=== PATIENT | female | born 1965 | race Caucasian/White ===

== ENCOUNTER → 2017-01-19 | Outpatient (CLI) | payer OTHER ==
--- NOTE | 2017-01-19 11:41 | MR ---
MR left hip HISTORY: Left hip pain Multiplanar multisequence imaging obtained through the pelvis with small lznra-by-qyna images through the left hip. There is reactive marrow change within the acetabula, proximal left femur, remodeling present in the left femoral head, there is marginal spurring and joint space loss, grade 3 to grade IV chondromalaci a. Subchondral geode formation is present in the acetabular roof and femoral head. Small left hip jason nt effusion is present. Minimal fluid signal present at the origins of the hamstring musculature. There is some fluid signal present along the right flank, subcutaneous tissues. Nabothian cysts are n oted within the cervix. IMPRESSION: Advanced osteoarthritis left hip
== END | disposition home or self-care (01) ==
LOC: RADMRIMAIN 09:09
PROVIDERS: ATTEND Family Medicine
DX: M16.12 Unilateral primary osteoarthritis, left hip (principal)

== ENCOUNTER → 2019-02-25 | Outpatient (CLI) | payer BC ==
--- NOTE | 2019-02-25 09:52 | XR ---
EXAMINATION TYPE: XR abdomen 2V DATE OF EXAM: 02/25/2019 CLINICAL DATA: 53 year-old female left lower quadrant pain, [facility] COMPARISON: None FINDINGS: Lung bases are clear. No evidence for free intraperitoneal air. Cholecystectomy clips. No dilated small bowel or air-fluid levels. Scattered air seen throughout the colon extending distall y into the rectum. Mild to moderate stool in the right side of the colon. Rounded calcification low in the left side of the pelvis suspected to represent a phlebolith. Mild dextroconvex curvature of the lumbar spine likely positional. Left hip total arthroplasty. IMPRESSION: 1. Rounded calcification low in the left side of the pelvis suspected to represent a phlebolith. 2.No evidence of bowel obstruction or free intraperitoneal air.
== END | disposition home or self-care (01) ==
LOC: RADXRYALE 09:04
PROVIDERS: ATTEND Physician Assistant Medical
DX: R10.32 Left lower quadrant pain (principal)
CPT/HCPCS: 74019

== ENCOUNTER → 2019-02-25 | Outpatient (CLI) | payer BC ==
--- NOTE | 2019-02-25 13:47 | CT ---
EXAMINATION TYPE: CT abdomen pelvis w con DATE OF EXAM: 02/25/2019 COMPARISON: None HISTORY: Left lower quadrant pain with nausea and vomiting. CT DLP: 1624 mGycm Automated exposure control for dose reduction was used. CONTRAST: CT scan of the abdomen pelvis is performed with IV Contrast, patient injected with 100 mL of Isovue M 300. FINDINGS- LUNG BASES- No significant abnormality is appreciated. LIVER/GB- No gross abnormality is appreciated. Postcholecystectomy changes noted. PANCREAS-there is fatty replacement and atrophy of portions of the pancreas SPLEEN- No gross abnormality is seen. ADRENALS- No gross abnormality is seen. KIDNEYS/BLADDER- no hydronephrosis nephrolithiasis or renal mass. BOWEL-bowel gas pattern is not adequately small bowel loops prominent in the lower abdomen upper pelv is.. There is thickening of the wall the right colon. LYMPH NODES- No greater than 1cm abdominal or pelvic lymph nodes areappreciated. OSSEOUS STRUCTURES-artifact from a left hip prostheses incidentally noted. Multilevel degenerative di sc disease. Arthropathy of the right hip. Artifact from the left hip prostheses limits portions of th e evaluation of the left pelvis. Bladder is therefore not well seen. OTHER- There is lobulation of the uterus which may represent a uterine fibroid or be related to a r ight ovarian adnexal lesion which could be correlated with ultrasound. Incidental note made of a retr oaortic left renal vein.. IMPRESSION- 1. There are few prominent small bowel loops are seen in the upper pelvis and lower abdomen which cou ld been the basis of an ileus. Enteritis not excluded. 2. There is thickening the wall the right colon. Underlying mucosal lesion is not excluded although t he finding could be related to incomplete distention. Correlate clinically and if warranted with dedi cated direct visualization. 3. Lobulated uterus. May been the basis of a fibroid or possibly ovarian lesion. Recommend follow-up pelvic ultrasound.
== END | disposition home or self-care (01) ==
LOC: RADCTMAIN 11:20
PROVIDERS: ATTEND Physician Assistant Medical
DX: K63.89 Other specified diseases of intestine (principal); N85.8 Other specified noninflammatory disorders of uterus
CPT/HCPCS: 74177; Q9967

== ENCOUNTER 2019-02-27 16:00 | Emergency (ER) | payer BC ==
[2019-02-27 17:07] LABS: Appearance,Urine Clear (Clear); Basophils # (A) 0.1 k/uL (0-0.2); Basophils % (A) 1 %; Bilirubin,Urine Negative (Negative); Blood,Urine Negative (Negative); Color,Urine Light Yellow; Eosinophils # (A) 0.3 k/uL (0-0.7); Eosinophils % (A) 3 %; Glucose,Urine (UA) Negative (Negative); HCT 43.6 % (34.0-46.0); HGB 14.4 gm/dL (11.4-16.0); Ketones,Urine Negative (Negative); Leukocyte Esterase,Urine Negative (Negative); Lymphocytes # (A) 2.5 k/uL (1.0-4.8); Lymphocytes % (A) 20 %; MCH 30.8 pg (25.0-35.0); MCV 93.2 fL (80.0-100.0); Monocytes # (A) 0.6 k/uL (0-1.0); Monocytes % (A) 5 %; Neutrophils # (A) 8.9 k/uL (1.3-7.7); Neutrophils % (A) 71 %; Nitrite,Urine Negative (Negative); Platelet Count 315 k/uL (150-450); Protein,Urine Negative (Negative); RBC 4.67 m/uL (3.80-5.40); RDW 13.6 % (11.5-15.5); Specific Gravity,Urine 1.004 (1.001-1.035); Urobilinogen,Urine <2.0 mg/dL (<2.0); WBC 12.5 k/uL (3.8-10.6)
[2019-02-27 17:19] LABS: Albumin 4.8 g/dL (3.5-5.0); Calcium 10.8 mg/dL (8.4-10.2); Potassium 3.5 mmol/L (3.5-5.1); Total Bilirubin 0.8 mg/dL (0.2-1.3)
[2019-02-27] MEDS ORDERED: KETOROLAC 30 MG/ML 1 ML VIAL IVP STA (17:21)
--- NOTE | 2019-02-27 17:51 | CT ---
EXAMINATION TYPE: CT abdomen pelvis wo con DATE OF EXAM: 02/27/2019 COMPARISON: 02/25/2019 HISTORY: Worsening LLQ pain CT DLP: 845.9 mGycm Automated exposure control for dose reduction was used. TECHNIQUE: Helical acquisition of images was performed from the lung bases through the pelvis. FINDINGS: Lung bases are clear. There is no pleural effusion. Heart is enlarged. Liver spleen appear normal. Th ere are clips from cholecystectomy. Bile ducts are not dilated. There is no evidence of pancreatic ma ss. There is no adrenal mass. Kidneys have normal size and contour. There is no hydronephrosis. Bladder d istends smoothly. There is oral contrast and a large bowel. There is no sign of a bowel obstruction. Uterus is anteverted. There is no inguinal hernia. There is no free fluid in the pelvis. There is deg enerative disc space narrowing at L2-3 with spur formation. There is no compression fracture. There i s mild atherosclerotic vascular calcification. There is no ascites. There is no sign of free air. There is no mesenteric edema. There is some fatty infiltration of the pancreas. There is left hip prosthesis with some mild metal artifact. There is no evidence of a pelvic mass. Appendix appears normal. I see no intestinal wall thickening. There are n o dilated loops. There is no evidence of a bowel obstruction. IMPRESSION: NEGATIVE CT SCAN ABDOMEN AND PELVIS. I DO NOT SEE A CAUSE FOR ABDOMINAL PAIN. NO ADVERSE CHANGE ARLEN RED TO OLD EXAM.
[2019-02-27] MEDS ORDERED: MORPHINE SULFATE 4 MG/ML SYRINGE IVP STA (19:03)
--- NOTE | 2019-02-27 19:19 | US ---
EXAMINATION TYPE: US transvaginal DATE OF EXAM: 02/27/2019 COMPARISON: CT CLINICAL HISTORY: Pain. Pelvic pain x 5 days Pt unsure of LMP. D and C. . TECHNIQUE: Transvaginal (TV). Date of LMP: Unknown. EXAM MEASUREMENTS: Uterus: 5.7 x 4.2 x 2.7 cm Endometrial Stripe: 0.29 cm Right Ovary: 3.0 x 2.3 x 2.1 cm Left Ovary: 1.9 x 1.5 x 1.3 cm 1. Uterus: Anteverted Hypoechoic areas seen in cervix suggestive of nabothian cysts. Area measured : 0.7 x 0.5 x 0.6 cm. 2. Endometrium: Not clearly seen. Approximate measurement. 3. Right Ovary: Appears heterogeneous. 4. Left Ovary: Slightly limited. Appears wnl. Spectral, color and waveform doppler imaging shows good arterial and venous flow within the ovaries ; there is no evidence for ovarian torsion. 5. Bilateral Adnexa: appears wnl 6. Posterior cul-de-sac: appears wnl IMPRESSION: Uterus and endometrium appear normal for age. No adnexal mass or free fluid. No evidence of ovarian torsion.
[2019-02-27 19:39] VITALS: RESP 18
[2019-02-27] MEDS ORDERED: ACET/COD 300 MG/30 MG STARTER PACK 6 TAB BTL PO STA (19:49)
--- NOTE | 2019-02-27 19:50 | ED ---
Abdominal Pain HPI - General Chief Complaint: Abdominal Pain Stated Complaint: left side back pain Time Seen by Provider: 02/27/19 16:23 Source: patient Mode of arrival: ambulatory Limitations: no limitations - History of Present Illness Initial Comments: 53-year-old female presenting today for chief complaint of left lower abdominal pain. Patient states she has had left lower abdominal pain for the past 4 days. She states it began after vomiting on Sunday and Sunday. She states the pain is intermittent and comes and goes. She states she has been evaluated by primary care provider were CT with contrast was obtained on 02/25/2019. It showed evidence suggestive enteritis as well as a lobulated uterus. Possible ovarian abnormality. Patient was instructed to come to the emergency department if symptoms worsen. Patient was placed on Flagyl and metronidazole at that time. Patient denies any melena hematochezia. She has a fever chills night sweats. Patient denies any dysuria urgency frequency hematuria, patient denies any tearing pain or pulsatile abdominal masses. Patient denies any current nausea or vomiting. Patient denies diarrhea. Patient denies history of diverticulitis. Patient denies history of kidney stones. Patient states the left lower abdominal pain does radiate at times to the back. She does not states the pain is constant she denies any alleviating or aggravating factors. Patient denies any injury or trauma to the abdomen or back. Remaining review of systems negative, patient denies any recent shortness of breath, chest pain, back pain, leg pain, numbness or tingling, dysuria or hematuria, constipation or diarrhea, headaches or visual changes, or any other complaints. - Related Data Home Medications Medication Instructions Recorded Confirmed Naproxen [Naprosyn] 500 mg PO BID PRN 01/16/15 02/27/19 QUEtiapine [SEROquel] 200 mg PO HS 01/16/15 02/27/19 ALPRAZolam [Xanax] 0.5 mg PO DAILY PRN 02/27/19 02/27/19 Ciprofloxacin HCl [Cipro] 500 mg PO BID 02/27/19 02/27/19 Levothyroxine Sodium [Synthroid] 50 mcg PO DAILY 02/27/19 02/27/19 Lisinopril-Hctz 20-25 mg 1 tab PO DAILY 02/27/19 02/27/19 [Zestoretic 20-25] metroNIDAZOLE [Flagyl] 500 mg PO TID 02/27/19 02/27/19 tiZANidine [Zanaflex] 4 mg PO TID 02/27/19 02/27/19 traMADol HCL [Ultram] 50 mg PO TID PRN 02/27/19 02/27/19 Allergies Allergy/AdvReac Type Severity Reaction Status Date / Time loratadine [From Claritin-D] AdvReac Rash/Hives Verified 02/27/19 16:59 pseudoephedrine sulfate AdvReac Rash/Hives Verified 02/27/19 16:59 [From Claritin-D] Review of Systems ROS Statement: Those systems with pertinent positive or pertinent negative responses have been documented in the HPI. ROS Other: All systems not noted in ROS Statement are negative. Past Medical History Additional Past Medical History / Comment(s): back pain History of Any Multi-Drug Resistant Organisms: None Reported Past Surgical History: Cholecystectomy, Joint Replacement, Tonsillectomy Additional Past Surgical History / Comment(s): lt hip Past Psychological History: No Psychological Hx Reported Smoking Status: Current every day smoker Past Alcohol Use History: None Reported Past Drug Use History: None Reported General Exam - General Exam Comments Initial Comments: General: The patient is awake and alert, in no distress, and does not appear acutely ill. Eye: Pupils are equal, round and reactive to light, extra-ocular movements are intact. No nystagmus. There is normal conjunctiva bilaterally. No signs of icterus. Ears, nose, mouth and throat: There are moist mucous membranes and no oral lesions. Neck: The neck is supple, there is no tenderness or JVD. Cardiovascular: There is a regular rate and rhythm. No murmur, rub or gallop is appreciated. Respiratory: Lungs are clear to auscultation, respirations are non-labored, breath sounds are equal. No wheezes, stridor, rales, or rhonchi. Gastrointestinal: Soft, non-distended, with mild tenderness to palpation of the left lower quadrant there is no rigidity the abdomen without pulsatile or firm masses or organomegaly noted. There is no rebound or guarding present. No CVA tenderness. Bowel sounds are unremarkable. Musculoskeletal: Normal ROM, no tenderness. Strength 5/5. Sensation intact. Radial pulses equal bilaterally 2+. Neurological: A&O x 3. CN II-XII intact, There are no obvious motor or sensory deficits. Coordination appears grossly intact. Speech is normal. Skin: Skin is warm and dry and no rashes or lesions are noted. Psychiatric: Cooperative, appropriate mood & affect, normal judgment. Limitations: no limitations Course Vital Signs 02/27/19 02/27/19 02/27/19 16:17 19:38 19:59 Temperature 98.1 F 98.4 F Pulse Rate 93 90 96 Respiratory 20 18 18 Rate Blood Pressure 154/84 156/66 148/67 O2 Sat by Pulse 99 99 95 Oximetry Medical Decision Making - Medical Decision Making While appearing 53-year-old female presented for left lower abdominal pain. Patient states at times it radiates towards the back. CT outpatient was obtained revealing lobulated uterus as well as findings consistent with colitis or enteritis. Patient did have history of vomiting. Patient states pain has persisted. CT was repeated given patient states there was increase in intensity of pain today. No acute findings no change from previous CT. Patient's been taking antibiotics. She does not appear in acute distress is no signs of acute abdomen. No rigidity no guarding or signs of peritoneal irritation signed. There is no hematuria or signs of kidney stone however there was a consultation note in the left lower aspect of abdomen from [facility] obtained 02/25/2019 outpatient. Laboratory studies revealed mild leukocytosis remaining u nremarkable. Patient appears well no signs of acute distress. Patient given start pack for Tylenol #3 for pain per request. Patient has a outpatient follow-up with gastroenterology for uppper and lower endoscopy. Pt states she is comfortable with discharge. Return parameters were discussed at length the patient. I discussed the case in detail type provider Dr. Dobson who was agreeable patient care plan after reviewing imaging and laboratory studies. - Lab Data Result diagrams: 02/27/19 16:55 02/27/19 16:55 Lab Results 02/27/19 02/27/19 02/27/19 Range/Units 16:55 16:55 16:55 WBC 12.5 H (3.8-10.6) k/uL RBC 4.67 (3.80-5.40) m/uL Hgb 14.4 (11.4-16.0) gm/dL Hct 43.6 (34.0-46.0) % MCV 93.2 (80.0-100.0) fL MCH 30.8 (25.0-35.0) pg MCHC 33.0 (31.0-37.0) g/dL RDW 13.6 (11.5-15.5) % Plt Count 315 (150-450) k/uL Neutrophils % 71 % Lymphocytes % 20 % Monocytes % 5 % Eosinophils % 3 % Basophils % 1 % Neutrophils # 8.9 H (1.3-7.7) k/uL Lymphocytes # 2.5 (1.0-4.8) k/uL Monocytes # 0.6 (0-1.0) k/uL Eosinophils # 0.3 (0-0.7) k/uL Basophils # 0.1 (0-0.2) k/uL Sodium 142 (137-145) mmol/L Potassium 3.5 (3.5-5.1) mmol/L Chloride 102 (98-107) mmol/L Carbon Dioxide 30 (22-30) mmol/L Anion Gap 10 mmol/L BUN 19 H (7-17) mg/dL Creatinine 0.89 (0.52-1.04) mg/dL Est GFR (CKD-EPI)AfAm 86 (>60 ml/min/1.73 sqM) Est GFR (CKD-EPI)NonAf 74 (>60 ml/min/1.73 sqM) Glucose 70 L (74-99) mg/dL Calcium 10.8 H (8.4-10.2) mg/dL Total Bilirubin 0.8 (0.2-1.3) mg/dL AST 23 (14-36) U/L ALT 24 (9-52) U/L Alkaline Phosphatase 68 (38-126) U/L Total Protein 8.0 (6.3-8.2) g/dL Albumin 4.8 (3.5-5.0) g/dL Amylase 38 (30-110) U/L Lipase 28 (23-300) U/L Urine Color Light Yellow Urine Appearance Clear (Clear) Urine pH 6.0 (5.0-8.0) Ur Specific [place] 1.004 (1.001-1.035) Urine Protein Negative (Negative) Urine Glucose (UA) Negative (Negative) Urine Ketones Negative (Negative) Urine Blood Negative (Negative) Urine Nitrite Negative (Negative) Urine Bilirubin Negative (Negative) Urine Urobilinogen <2.0 (<2.0) mg/dL Ur Leukocyte Esterase Negative (Negative) Disposition Clinical Impression: Abdominal pain Disposition: HOME SELF-CARE Condition: Good Instructions (If sedation given, give patient instructions): Abdominal Pain (ED) Additional Instructions: Please use medication as discussed. Please follow-up with family doctor in the next 2 days, and GI as discussed. Please return to emergency room if the symptoms increase or worsen or for any other concerns. Is patient prescribed a controlled substance at d/c from ED?: No Referrals: Wyatt Gray DO [Primary Care Provider] - 1-2 days Jarvis Hanson MD [STAFF PHYSICIAN] - 1-2 days Time of Disposition: 19:50
[2019-02-27 20:03] VITALS: BP 148/67; PULSE 96; TEMP 98.4
== END 2019-02-27 19:59 | disposition home or self-care (01) ==
LOC: EC 16:00
DX: R10.32 Left lower quadrant pain (principal); D72.829 Elevated white blood cell count, unspecified; M54.9 Dorsalgia, unspecified; F17.200 Nicotine dependence, unspecified, uncomplicated; Z88.8 Allergy status to other drugs, medicaments and biological substances; Z79.899 Other long term (current) drug therapy; Z79.890 Hormone replacement therapy; Z90.49 Acquired absence of other specified parts of digestive tract
CPT/HCPCS: 36415; 80053; 82150; 83690; 85025; 81003; 93975; 76830; 74176; 99284; 96374; 96375; J2270; J1885

== ENCOUNTER → 2019-06-12 | Outpatient (CLI) | payer BC ==
--- NOTE | 2019-06-12 15:49 | XR ---
EXAMINATION TYPE: XR lumbosacral spine min 4V DATE OF EXAM: 06/12/2019 CLINICAL HISTORY: Chronic left lower back pain. TECHNIQUE: Frontal, lateral, and oblique images of the lumbar spine are obtained. COMPARISON: 01/20/2015 FINDINGS: There are 5 lumbar type vertebral bodies identified. No acute fracture or subluxation. Red emonstration of disc space narrowing in the lower thoracic spine and upper lumbar spine most severe a t L2-3. Anterior marginal osteophytes throughout the visualized spine. Multilevel facet arthropathy. No spondylolysis or spondylolisthesis. Pedicles and sacroiliac joints are intact. Partially visualize d left hip arthroplasty. IMPRESSION: No acute fracture or dislocation is seen in the lumbar spine.
== END | disposition home or self-care (01) ==
LOC: RADXRYALE 15:14
PROVIDERS: ATTEND Physician Assistant Medical
DX: M54.5 Low back pain (principal); R22.42 Localized swelling, mass and lump, left lower limb
CPT/HCPCS: 72110

== ENCOUNTER → 2020-12-17 | Outpatient (CLI) | payer BC ==
--- NOTE | 2020-12-17 13:16 | US ---
EXAMINATION TYPE: US pelvis complete transvag DATE OF EXAM: 12/17/2020 COMPARISON: CLINICAL HISTORY: N83.201 Unspecified ovarian cyst, right side. Patient states having an MRI at [facility] that showed 14 mm cyst TECHNIQUE: Transvaginal (TV) and Transabdominal (TA) . Transabdominal sonographic images of the pel vis were acquired. Transvaginal sonographic images were medically necessary to better assess the fol lowing anatomy: Endometrium, ovary Date of LMP: Postmenopausal, G0 EXAM MEASUREMENTS: Uterus: 4.6 x 3.0 x 2.3 cm Endometrial Stripe: 0.3 cm Right Ovary: 2.0 x 1.2 x 1.1 cm Left Ovary: 1.8 x 0.9 x 1.4 cm 1. Uterus: Anteverted Heterogenous. Atrophic. 2. Endometrium: Limited visualization, within normal limits 3. Right Ovary: wnl 4. Left Ovary: wnl 5. Bilateral Adnexa: wnl 6. Posterior cul-de-sac: no free fluid Cervix- Nabothian cysts. Possible mass visualized = 2.5 x 2.4 x 2.2 cm IMPRESSION: 1. Heterogenous appearance of the cervix. Solid lesion may be present. Additional workup with MRI is recommended.
== END | disposition home or self-care (01) ==
LOC: RADUSWWP 11:52
PROVIDERS: ATTEND Family Medicine
DX: N83.201 Unspecified ovarian cyst, right side (principal)
CPT/HCPCS: 76830; 76856

== ENCOUNTER → 2021-02-11 | Outpatient (CLI) | payer BC ==
--- NOTE | 2021-02-14 14:32 | MM ---
Reason for exam: screening (asymptomatic). Last mammogram was performed 8 years ago. History: Patient is nulliparous. Family history of breast cancer in cousin at age 50 and breast cancer in aunt. Physical Findings: A clinical breast exam by your physician is recommended on an annual basis and results should be correlated with mammographic findings. MG Screening Mammo w CAD Bilateral CC and MLO view(s) were taken. Prior study comparison: February 21, 2013, bilateral digital screening mammo w/CAD. November 03, 2008, left breast digital mammogram. There are scattered fibroglandular densities. Finding: There are typically benign round, regional calcifications in the lower inner quadrant, posterior position of both breasts. There is a chronic nodularity in the right breast. There is no discrete abnormality. No change since 2007. ASSESSMENT: Benign, BI-RAD 2 RECOMMENDATION: Routine screening mammogram of both breasts in 1 year.
== END | disposition home or self-care (01) ==
LOC: RADMAMWWP 09:53
PROVIDERS: ATTEND Family Medicine
DX: Z12.31 Encounter for screening mammogram for malignant neoplasm of breast (principal)
CPT/HCPCS: 77067

== ENCOUNTER → 2021-04-20 | Outpatient (CLI) | payer BC, OTHER ==
[2021-04-20 14:18] VITALS: BP 145/81; PULSE 83; RESP 18; TEMP 98
--- NOTE | 2021-04-20 14:36 | P.PAINCN ---
History of Present Illness - Reason for Consult Consult date: 04/20/21 - History of Present Illness This is a 55-year-old patient referred by her PCP with a chief complaint of chronic pain in low back pain with radiation into the lower extremities. Patient has a of low back pain since 2014. She says the pain started after she had her left hip replaced. Pain is located in the low back with some radiation down the right lower extremity. Occasionally will radiate into the foot, however this is uncommon. The majority of her pain is in her low back. Pain is made worse with walking and sometimes sitting, alleviated with leg elevation. Currently an 8 out of 10, at its worst a 10 out of 10, at best a 2 out of 10. In terms of management she has seen a chiropractor, gets massages, has done physical therapy. Currently takes Celebrex tramadol and Robaxin from her primary care pr jaleel. 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 In regards to injections, we have a noted left SI joint injection in 2016 but she does not remember this. . Patient also denies new-onset weakness, bowel/bladder incontinence, or any other signs or symptoms of cauda equina syndrome. There are no signs of acute intoxication, and no indications of medication diversion or overuse. In addition to above, 13-point review of systems is also negative for chest pain, shortness of breath, changes in vision, changes in hearing, new onset weakness, abdominal pain, diarrhea, extreme fatigue, malaise, fever, skin changes, homicidal or suicidal ideation, or bowel or bladder incontinence. Physical exam: Vital Signs: Reviewed in EMR GENERAL: obese, in no acute distress PSYCH: Mood and affect is appropriate. Awake, alert, and oriented SKIN: Skin color, texture, turgor normal, no rashes or lesions HEENT: Normocephalic, atraumatic. EOM intact CV: No pedal edema RESP: Respirations are unlabored, no audible wheezing GI: Abdomen non-distended MUSCULOSKELETAL: Bilateral upper and lower extremity strength is normal and symmetric. Significant muscle atrophy of the lumbar spine with lordosis noted. Lumbar spine: Straight leg raising in the sitting position is negative for radicular pain. No pain to palpation over the lumbar spine and paraspinous m uscles. positive for pain with facet loading Limited flexion and extension due to pain/body habitus Buttocks: No pain to palpation over the PSIS, Glendy test is negative Extremities: Peripheral joint ROM is full and pain free without obvious instability or laxity in all four extremities. No edema or skin discolorations noted. Gait: Gait is normal but slow NEUR: Bilateral upper and lower extremity coordination and muscle stretch reflexes are physiologic and symmetric. Negative clonus. No loss of sensation is noted. Cranial nerves are grossly intact. Imaging: Lumbar MRI At L2-L3 there is disc bulge and facet degeneration with mild central canal stenosis and moderate left and mild right foraminal stenosis L3-L4 there is minimal disc bulge and facet degenerationsignificant stenosis. L4-L5 mild to moderate right and mild left foraminal stenosis with central canal is painted excellent L5-S1 there is a disc bulge with right foraminal and far lateral component facet degeneration there is moderate right and left foraminal stenosis with contact of the right L5 nerve root. Assessment: 1. Lumbar facet arthropathy 2. Lumbar disc degeneration Plan: 1. Explanation: Diagnoses, prognoses, and multiple treatment options including but not limited to physical therapy, interventional therapies, medication management and surgery were discussed with the patient and all questions were answered to the patient's satisfaction. 2. Investigations: none 3. Counseling: The patient was counseled for 3 minutes on BODY MASS INDEX, EXERCISE. Specifically, the patient was instructed regarding the importance of smoking cessation, weight control, and exercise in the context of both chronic pain and overall health. 4. Procedures: bilateral L4-5 and L5-s1 MBB 5. Consultations: None 6. Medications: None 7. Disposition: for above procedure I spent 50 minutes on patient care today. The time was used to review medical records including relevant urine studies and prescription history (MAPs), review of the available imaging, evaluation and examination the patient, coordination of care at the medical staff and if applicable referring physicians, as well as creation of the medical record. Past Medical History Past Medical History: GERD/Reflux, Thyroid Disorder Additional Past Medical History / Comment(s): LOWER BACK PAIN, SEES CHIROPRACTOR History of Any Multi-Drug Resistant Organisms: None Reported Past Surgical History: Cholecystectomy, Joint Replacement, Tonsillectomy Additional Past Surgical History / Comment(s): TOTAL LEFT HIP Past Anesthesia/Blood Transfusion Reactions: No Reported Reaction Past Psychological History: No Psychological Hx Reported Smoking Status: Former smoker Past Alcohol Use History: Occasional Additional Past Alcohol Use History / Comment(s): SMOKES 4-5 CIGARETTES/DAY, STARTED AGE 22, QUIT OFF AND ON. Past Drug Use History: None Reported - Past Family History Sister(s) Family Medical History: Cancer Medications and Allergies Home Medications Medication Instructions Recorded Confirmed Type Naproxen [Naprosyn] 500 mg PO BID PRN 01/16/15 02/27/19 History QUEtiapine [SEROquel] 200 mg PO HS 01/16/15 02/27/19 History ALPRAZolam [Xanax] 0.5 mg PO DAILY PRN 02/27/19 02/27/19 History Ciprofloxacin HCl [Cipro] 500 mg PO BID 02/27/19 02/27/19 History Levothyroxine Sodium [Synthroid] 50 mcg PO DAILY 02/27/19 02/27/19 History Lisinopril-Hctz 20-25 mg 1 tab PO DAILY 02/27/19 02/27/19 History [Zestoretic 20-25] metroNIDAZOLE [Flagyl] 500 mg PO TID 02/27/19 02/27/19 History tiZANidine [Zanaflex] 4 mg PO TID 02/27/19 02/27/19 History traMADol HCL [Ultram] 50 mg PO TID PRN 02/27/19 02/27/19 History Allergies Allergy/AdvReac Type Severity Reaction Status Date / Time loratadine [From Claritin-D] AdvReac Rash/Hives Verified 04/14/21 15:17 pseudoephedrine sulfate AdvReac Rash/Hives Verified 04/14/21 15:17 [From Claritin-D] PQRS Measure Charge Sheet PQRS Narrative: Smoking Status Current every day smoker Pain Intensity [Lower Back] 8 Scale Used Numeric (1 - 10) Home Medications: Ambulatory Orders Naproxen [Naprosyn] 500 mg PO BID PRN 01/16/15 QUEtiapine [SEROquel] 200 mg PO HS 01/16/15 ALPRAZolam [Xanax] 0.5 mg PO DAILY PRN 02/27/19 Ciprofloxacin HCl [Cipro] 500 mg PO BID 02/27/19 Levothyroxine Sodium [Synthroid] 50 mcg PO DAILY 02/27/19 Lisinopril-Hctz 20-25 mg [Zestoretic 20-25] 1 tab PO DAILY 02/27/19 metroNIDAZOLE [Flagyl] 500 mg PO TID 02/27/19 tiZANidine [Zanaflex] 4 mg PO TID 02/27/19 traMADol HCL [Ultram] 50 mg PO TID PRN 02/27/19
== END ==
LOC: PNWHC3 13:54
PROVIDERS: ATTEND Anesthesiology
DX: M47.816 Spondylosis without myelopathy or radiculopathy, lumbar region (principal); M51.36 Other intervertebral disc degeneration, lumbar region; F17.210 Nicotine dependence, cigarettes, uncomplicated; Z88.8 Allergy status to other drugs, medicaments and biological substances
CPT/HCPCS: 99211

== ENCOUNTER 2021-05-06 10:42 | Day surgery (SDC) | payer BC ==
[2021-05-05 14:35] VITALS: BMI 42.3
[2021-05-06 11:00] VITALS: TEMP 97.8
[2021-05-06] MEDS ORDERED: LACTATED RINGERS 1,000 ML IV ONE (11:00)
[2021-05-06] MEDS ORDERED: TRIAMCINOLONE ACETONIDE 40 MG/ML 1 ML VIAL ONE (11:29)
[2021-05-06] MEDS ORDERED: ROPIVACAINE 5MG/ML 20ML VIAL ONE (11:29)
[2021-05-06] MEDS ORDERED: IOPAMIDOL M200 10 ML VIAL ONE (11:29)
[2021-05-06] MEDS ORDERED: MIDAZOLAM 2 MG/2 ML VIAL ONE (11:29)
[2021-05-06] MEDS ORDERED: fentaNYL (PF) 50 MCG/ML 2 ML AMP ONE (11:29)
--- NOTE | 2021-05-06 11:44 | P.PCN ---
Date of Procedure: 05/06/21 Description of Procedure: PREOPERATIVE DIAGNOSIS : Lumbar spondylosis with Facet Arthropathy without myelopathy POSTOPERATIVE DIAGNOSIS: same PROCEDURE: first Diagnostic lumbar medial branch block with fluoroscopy at L3, L4, L5 [bilateral] which covers facets L4-5 and L5-S1 ANESTHESIA: Local anesthetic; moderate IV sedation with anesthesia team Fluoroscopy was used for the procedure and images were saved in the radiology portion of the chart. Surgeon: Robin Rico MD PROCEDURE INDICATION: Lumbar back pain without radiculopathy, not responsive to conservative management. PROCEDURE DESCRIPTION: the patient was seen and identified in the preop holding area , risks and benefits and possible complications of the procedure and alternatives were discussed with the patient, and the patient agreed to proceed with the procedure and signed the consent . IV was started , vital signs were monitored during the procedure and fluoroscopy was used to maximize the benefit and accuracy of the needle placement, and sedation was given to decrease patient anxiety. Patient was taken to the procedure room and placed in prone position. The lumbar region was prepped using chlorhexidineX-2. Under strict sterile technique using AP fluoroscopy the bilateral sacral ala were identified and using ipsilateral oblique fluoroscopy ,the junction of the transverse process and the superior articulating process of the L4, L5 vertebra which corresponds to the fluoroscopy image of the eye of the Wing dog for the medial branches were identified. Subsequently, after local infiltration of skin with lidocaine 1% 0.2 mL at each level , a 25-gauge 3.5" Quincke-type needle was placed at the junction of the base of the transverse process and the superior articular process at the appropriate level as well as the sacral ala, and the needle was advanced until the periosteum contacted, needle placement confirmed with AP and oblique fluoroscopy, 0.2 mL of Isovue 200 per level was injected which revealed no vascular uptake and after negative aspiration. I mona up 5 mL of 0.5% ropivacaine and 1 mL of 40 mg/mL kenalog and injected 1 mL of this injectate at each level and the needle subsequently removed . A total of [2 levels injected bilaterally] At the end of the procedure and the needles were removed and a bandage applied after the skin was cleaned. The patient was taken to recovery room in stable condition and monitors in the recovery room for 20-30 minutes and discharged home in stable condition after discharge criteria met and patient will follow up in clinic in 2 weeks EBL: Minimal COMPLICATION: None.
[2021-05-06] MEDS ORDERED: IV FLUID CONTINUATION 1,000 ML IV ONE (11:51)
[2021-05-06 11:53] VITALS: PULSE 60
--- NOTE | 2021-05-06 12:06 | FL ---
Fluoroscopy HISTORY: Pain 8 seconds fluoroscopy time supplied to the referring clinician. 3 intraoperative C-arm images docume nt the procedure. See dictated report from anesthesia.
[2021-05-06 12:07] VITALS: BP 111/66; RESP 16
== END 2021-05-06 12:20 | disposition home or self-care (01) ==
LOC: ORPAIN 10:42
PROVIDERS: ATTEND Anesthesiology
DX: M47.816 Spondylosis without myelopathy or radiculopathy, lumbar region (principal); Z88.8 Allergy status to other drugs, medicaments and biological substances; F17.200 Nicotine dependence, unspecified, uncomplicated; E07.9 Disorder of thyroid, unspecified; G89.29 Other chronic pain; K21.9 Gastro-esophageal reflux disease without esophagitis; Z79.82 Long term (current) use of aspirin; Z79.890 Hormone replacement therapy; Z79.891 Long term (current) use of opiate analgesic; Z79.899 Other long term (current) drug therapy
CPT/HCPCS: 64493; 64494; J2250; J3301; J3010; Q9966; J2795

== ENCOUNTER → 2021-06-24 | Day surgery (SDC) | payer BC ==
[2021-06-21 12:47] VITALS: BMI 41.2
[~2021-06-24] MED LIST: IV FLUID CONTINUATION 500 ML IV ONE; LACTATED RINGERS 1,000 ML IV SCH; LIDOCAINE 1% (10MG/ML) FOR IV START INTRADERMA PRN; MIDAZOLAM 2 MG/2 ML VIAL ONE; ROPIVACAINE 5MG/ML 20ML VIAL ONE; fentaNYL (PF) 50 MCG/ML 2 ML AMP ONE; methylPREDNISolone ACETATE 40 MG/ML 1 ML VIAL ONE
[2021-06-24 10:25] VITALS: TEMP 97.8
--- NOTE | 2021-06-24 11:22 | P.PCN ---
Date of Procedure: 06/24/21 Procedure(s) Performed: PREOPERATIVE DIAGNOSIS : 1- Lumbar spondylosis with Facet Arthropathy without myelopathy . POSTOPERATIVE DIAGNOSIS: 1- Lumbar spondylosis with Facet Arthropathy without myelopathy . PROCEDURE: Diagnostic bilateral L3 , L4 , and L5 medial branch block under fluoroscopy guidance(fluoroscopy images available in the radiology Department ) ( To target the facet joint between Bilateral L4-5 , and L5-S1 ) #2nd ANESTHESIA: Monitored anesthesia care as per anesthesia department. EBL: Minimal COMPLICATION: None PROCEDURE INDICATION: Chronic low back pain secondary to Facet arthropathy unresponsive to conservative treatment. PROCEDURE DESCRIPTION: the patient was seen and identified in the preop holding area , risks and benefits and possible complications of the procedure and alternative were discussed with the patient, and the patient agreed to proceed with the procedure and signed the consent and vital signs monitored during the procedure and fluoroscopy was used to maximize the benefit and accuracy of the needle placement, and sedation was given to decrease patient anxiety, patient was taken to the procedure room and placed in prone position vital signs monitored in the back prepped with chlorhexidine X3 then under strict sterile technique using a right oblique fluoroscopy ,the junction of the transverse process and the superior articulating process of the right L3 , L4 , and L5 vertebra which corresponding to the fluoroscopy image of the eye of the Wing dog on the block side for the medial branches and subsequently , after local infiltration of skin and subcu tissuies with Ropivacaine 0.5 % , one mL at each level ,then 22-gauge 5 inches long Quincke-type needles , 3 needle was used , each one of them placed at the junction of the base of the transverse process and the superior articular process at the appropriate level, and the needle was advanced until the periosteum contacted, needle placement confirmed with AP oblique and lateral view and after appropriate needle placement confirmed, and after negative aspiration for heme and CSF and there was no paresthesia 1-1/2 mL of Ropivacaine 0.5% mixed with 20 mg Depo-Medrol , then half mL injected at each level after negative aspiration the needle subsequently removed and the same procedure repeated for the left side at left side at L3 , L4 and L5 levels. At the end of the procedure and the needles removed and a bandage applied after the skin was cleaned the cleaning solution patient taken to recovery room in stable condition and monitors in the recovery room for 20-30 minutes and discharged home in stable condition after discharge criteria met and patient will follow up with the pain clinic in 2-4 weeks
[2021-06-24 11:40] VITALS: BP 120/66; PULSE 62; RESP 16
--- NOTE | 2021-06-24 13:13 | FL ---
EXAMINATION TYPE: FL guided pain mgmt statistic DATE OF EXAM: 06/24/2021 FLUOROSCOPY Fluoroscopy time of 16 seconds was used during lumbar needle placement pain management procedure. 4 image/s document/s the procedure.
== END ==
LOC: ORPAIN 09:39
PROVIDERS: ATTEND Specialist
DX: M47.816 Spondylosis without myelopathy or radiculopathy, lumbar region (principal); G89.29 Other chronic pain; E03.9 Hypothyroidism, unspecified; K21.9 Gastro-esophageal reflux disease without esophagitis; Z87.891 Personal history of nicotine dependence
CPT/HCPCS: 64493; 64494; J2250; J1030; J3010; J2795

== ENCOUNTER → 2021-08-29 | Outpatient (CLI) | payer BC ==
--- NOTE | 2021-08-29 15:09 | P.PN ---
Subjective Progress Note Date: 08/29/21 Earnestine is a 56-year-old female presenting to clinic today for follow-up evaluation after second lumbar medial branch block 06/24/2021. After her first bilateral lumbar medial branch block at L4 5 and L5-S1 she has significant relief. She reported greater than 80% relief of her pain at that time. After the second injection she reported no relief in pain. She felt that her pain increased that day. She reported that she felt like she had a difficult procedure which caused her distress that day. Today she still reporting lower back pain greater on the right and left. She describes it as a sharp aching sensation and she rates it at worst is a 9 out of 10. At best is a 3 out of 10. Her pain is worse with sitting, bending and rising from a seated position. Pain is better with care support representative, Biofreeze, and massage therapy. She reports the pain in her lower back will sometimes radiate into her buttock and on the lateral portion of her right thigh. She denies any bowel or bladder dysfunction, saddle anesthesia, or any other red flag symptoms. Objective - Exam Physical Examinations : -Constitutiona : Cooperative , not in acute distress . -HEENT : nech : supple , no Lymphadenopathy , normal thyroid size . : eyes : no ptosis , no icterus, no photophobia . - neurologic : Cranial nerve II to XII intact , no focal neurological deffecit . -psychatric : alert , oriented X 3 , appropriate affect , intact judgment and insight . -Lymphatic : no Lymphadenopathy . - musculoskeltal : Lumber spine moter stegnth lower extremities ,thigh and legs 5/5 Right side , 5/5 Left side deep tendon reflexes : normal Knee Jerk , normal ankle Jerk lumber facet Loading Test =positive Right , positive Left Range of motion of the lumbar spine Flexion 30 degrees, extension 10 degrees strait leg raising test = positive at 45 degree Fabere test= unable to perform Sever tenderness over the Sacroiliac joint on the Right Gaenslen test= positive right ,and positive left . Seated flexion test= positive right . Distraction test= positive right Sacroiliac compression test= positive right Assessment and Plan Assessment: Assessment and plan Assessment: Lumbar spondylosis and facet arthropathy without myelopathy Right-sided sacroiliac joint dysfunction Plan: The patient can benefit from right sacroiliac joint injection up to 3 injections - PQRS measures = - Patient's medications are documented in the chart. -Tobacco use is positiveand counseling.refused -Patient's has not received pneumococcal vaccine. -Advanced care planning discussed, patient not eligible. -Opiate contract not signed. -Pain positive and follow-up visit/procedure is scheduled. -Patient's blood pressure measured [ 136/76 ] , and documented in the record ,and patient will follow up with the primary care. -Patient was not identified as an unhealthy alcohol user Time with Patient: Less than 30
[2021-08-29 16:19] VITALS: BP 136/76; PULSE 70; RESP 18
== END ==
LOC: PNWHC3 13:42
PROVIDERS: ATTEND Student in an Organized Health Care Education/Training Program
DX: M47.816 Spondylosis without myelopathy or radiculopathy, lumbar region (principal); M46.1 Sacroiliitis, not elsewhere classified; F17.200 Nicotine dependence, unspecified, uncomplicated; Z88.8 Allergy status to other drugs, medicaments and biological substances
CPT/HCPCS: 99211

== ENCOUNTER 2021-11-10 12:37 | Day surgery (SDC) | payer BC ==
[2021-11-08 09:52] VITALS: BMI 41.2
[2021-11-10] MEDS ORDERED: LACTATED RINGERS 1,000 ML IV SCH (13:10)
[2021-11-10 13:24] VITALS: RESP 16; TEMP 98.9
[2021-11-10] MEDS ORDERED: methylPREDNISolone ACETATE 40 MG/ML 1 ML VIAL ONE (13:49)
[2021-11-10] MEDS ORDERED: ROPIVACAINE 5MG/ML 20ML VIAL ONE (13:49)
[2021-11-10] MEDS ORDERED: MIDAZOLAM 2 MG/2 ML VIAL ONE (13:49)
[2021-11-10] MEDS ORDERED: fentaNYL (PF) 50 MCG/ML 2 ML AMP ONE (13:49)
--- NOTE | 2021-11-10 14:03 | P.PCN ---
Date of Procedure: 11/10/21 Procedure(s) Performed: Procedure= Right sacroiliac joints steroid injection under fluoroscopy guidance (fluoroscopy image stored on file in the radiology Department ) Preoperative diagnosis= 1-sacroiliitis 2-lumbar spondylosis with facet arthropathy Postoperative diagnosis=Same as preop Diagnosis . Complication = none Condition= stable Anesthesia= moderate sedation with intravenous Versed 2 mg , and fentanyl 100 micrograms . Indication for the procedure= patient complaining of low back pain , examination was positive for severe tenderness over the sacroiliac joints bilaterally and patient diagnosed with sacroiliitis, for this reason , she was good candidate for sacroiliac joint steroid injection. Description of the procedure= procedure risk and benefits discussed with the patient, including but not limited, risk of infection and bleeding, and ALLERGIC reaction to the medication and not complete pain relief and patient agreed with the preceding patient taken to the operating room, placed in prone position or standard monitors applied to the patient then after induction of anesthesia back prepped with chlorhexidine 3 times , Then under strict sterile technique, first I did the right sacroiliac joint the which was identified under fluoroscopy guidance been local infiltration of the skin and subcu interstitial with lidocaine 1% then 22-gauge Quincke Needle advanced slowly under fluoroscopy and placed in the right sacroiliac joint needle placement confirmed with AP and oblique and lateral view and after appropriate needle placement confirmed and after negative aspiration, or heme , then Ropivacaine 0.5% 4 mL, and 80 mg of Depo-Medrol mixed together and injected in the right sacroiliac joint after negative aspiration patient tolerated the procedure well without any complication.
--- NOTE | 2021-11-10 14:22 | FL ---
EXAMINATION TYPE: FL guided pain mgmt statistic DATE OF EXAM: 11/10/2021 CLINICAL HISTORY: Right sacroiliac joint pain. TECHNIQUE: Fluoroscopy. COMPARISON: None. FINDINGS: Fluoroscopic guidance was provided during pain relief procedure performed by Dr. Saurez . A total of 9 seconds of fluoroscopic time was utilized during the procedure and 1 spot images are acquired. Single limits acquired shows needle localization at the inferior sacroiliac joint level. IMPRESSION: As Above.
[2021-11-10 14:23] VITALS: BP 135/74; PULSE 71
[2021-11-10] MEDS ORDERED: IV FLUID CONTINUATION 1,000 ML IV ONE (14:25)
== END 2021-11-10 14:54 | disposition home or self-care (01) ==
LOC: ORPAIN 12:37
PROVIDERS: ATTEND Specialist
DX: M47.896 Other spondylosis, lumbar region (principal); M51.36 Other intervertebral disc degeneration, lumbar region; M54.51 Vertebrogenic low back pain; M46.1 Sacroiliitis, not elsewhere classified; M47.816 Spondylosis without myelopathy or radiculopathy, lumbar region
CPT/HCPCS: 27096; J2250; J1030; J3010; J2795

== ENCOUNTER → 2021-11-18 | Outpatient (CLI) | payer BC ==
--- NOTE | 2021-11-18 11:27 | XR ---
EXAMINATION TYPE: XR cervical spine comp DATE OF EXAM: 11/18/2021 TECHNIQUE: Frontal, lateral, oblique, swimmers, and open mouth view of the cervical spine are obtaine d. HISTORY: [id number] CERVICALGIA,FALL,PARESTHESIA COMPARISON: Prior cervical spine x-ray October 13, 2014 FINDINGS: The cervical spine is visualized in its entirety from C1 thru the top of T1 level, straigh tening of cervical spine is redemonstrated. Grade 1 anterolisthesis C2 on C3 redemonstrated. The pre -vertebral soft tissue remains upper limits of normal lower cervical levels. The C1-C2 articulation is within normal limits on the open mouth view. Vertebral body heights are maintained. Mild to moder ate disc space narrowing with moderate to severe anterior spurring C3-C4 level redemonstrated. Modera te disc space narrowing and anterior spurring C4-C5 level redemonstrated. Moderate disc space narrowi ng with mild spurring C5-C6 through C7-T1 levels are redemonstrated. The oblique images remaining wit hin normal limits. Overlying linear density from mask is incidentally noted. IMPRESSION: As above. Mild progressive changes from 2014 study noted.
== END | disposition home or self-care (01) ==
LOC: RADXRYALE 11:03
PROVIDERS: ATTEND Family Medicine
DX: M50.31 Other cervical disc degeneration, high cervical region (principal); M43.11 Spondylolisthesis, occipito-atlanto-axial region; W19.XXXA Unspecified fall, initial encounter
CPT/HCPCS: 72050

== ENCOUNTER → 2021-12-23 | Outpatient (CLI) | payer BC ==
--- NOTE | 2021-12-23 13:42 | MR ---
EXAMINATION TYPE: MR cervical spine wo con DATE OF EXAM: 12/23/2021 1:09 PM COMPARISON: NONE HISTORY: Neck pain and fingers tingling, problem got worse after fall in [facility] echo imaging of the cervical spine was performed. Comparison: 11/02/2014 C2-C3: No evidence for degenerative disc disease. No disc bulge/herniation or protrusion. No Canal stenosis. Foramina are patent bilaterally. C3-C4: Mild to moderate decreased signal and loss of height compatible degenerative disc disease. Mil d posterior disc bulge. No evidence for disc herniation or protrusion. No central stenosis. Foramina are patent bilaterally. C4-C5: Mild to moderate decreased signal and loss of height compatible degenerative disc disease. Mil d posterior disc bulge. No evidence for disc herniation or protrusion. No central stenosis. Mild left foraminal encroachment noted. C5-C6: Mild to moderate decreased signal and loss of height compatible degenerative disc disease. Mil d posterior disc bulge. No evidence for disc herniation or protrusion. No central stenosis. Mild bila teral foraminal encroachment noted. C6-C7: Mild to moderate decreased signal and loss of height compatible degenerative disc disease. Mil d posterior disc bulge. No evidence for disc herniation or protrusion. No central stenosis. Foramina are patent bilaterally. C7-T1: No evidence for degenerative disc disease. No disc bulge/herniation or protrusion. No Canal stenosis. Foramina are patent bilaterally. Cervical segments are intact. There is normal alignment. Cervical spinal cord is of normal signal. Craniovertebral junction relationships are within normal limits. IMPRESSION: 1. Multilevel degenerative disc disease with disc bulging and mild foraminal encroachment as noted ab judit.
== END | disposition home or self-care (01) ==
LOC: RADMRIMAIN 12:21
PROVIDERS: ATTEND Family Medicine
DX: M50.323 Other cervical disc degeneration at C6-C7 level (principal); M50.223 Other cervical disc displacement at C6-C7 level
CPT/HCPCS: 72141

== ENCOUNTER → 2022-04-20 | Outpatient (CLI) | payer BC ==
--- NOTE | 2022-04-20 11:41 | P.PAINPG ---
PQRS Measure Charge Sheet Comment: A 56 yr old female with a history of severe and chronic low back pain secondary to lumbar degenerative disc diseases and lumbar spondylosis with facet arthropathy and R Sacroiliitis presents today for evaluation s/p R SI joint injection. Pt states she couldn't come in earlier as she lost her insurance for several months. Pt states she experienced approximately 75% pain relief x 4 mo s/p procedure. Pain level is currently at 8/10 in intensity in the right lower aspects of her lumbar spine w radiation of pain towards the R buttocks. Pain is provoked by bending and sitting (for 30 min or more). Pain is alleviated with medications, alternating heat & ice, PT for her lumbar spine in Jul 2021, home stretchign regimen and laying supine w LEs elevated. Also in Oct 2021, she suffered a fall down a "couple steps" and developed cervical pain, tightness and spasms with radiation of pain to the BL shoulders. She states it feels like its "locking" due to spasms. Pain level is /10 in intensity. Pain is provoked w lifting, twisting and bending. chiropractic treatments once a week, massage therapy monthly, heat, ice, home stretching regimen, topical roll on for pain relief, Salon Pas patches as needed, medications (prednisone dose pack, Tramadol QAM, Robaxin TID, Celebrex QD when she is done w the taper) and rest. Interventional pain procedures completed include R SI joint x 1. Patient is currently on Celebrex, Tramadol, Robaxin prn. Patient denies any side effects of the medication(s), denies excessive drowsiness or sleepiness, denies suicidal ideation and reports that the current pain medication is helping to control the pain and improve activities of daily living. Patient denies any motor or sensory deficits. Patient denies any fever or night sweats, denies any change in the bowel movements or urination. Physical Examination: -Constitutional: Cooperative. Not in acute distress . - Neurologic: Cranial nerve II to XII intact. No focal neurological deficits. - Psychatric: Alert & oriented x 3. Matching mood & appropriate affect. Judgment and insight intact. - Musculoskeletal: Cervical spine: Muscle bulk/ tone/ strength in the bilateral upper extremities normal Vertebral body tenderness to palpation over C3, C4, C5 Spurling test positive Distraction test positive Facet loading test positive Thoracic spine Muscle bulk / tone/ strength in the bilateral paraspinal muscles normal Vertebral body tender to palpation over Facet loading test positive Lumbar spine: Motor bulk/ tone/ strength lower extremities , thigh and legs : 5/5 Deep tendon reflexes : Normal Knee Jerk. Normal Ankle Jerk . Vertebral body tenderness to palpation over Lumbar Facet Loading Test positive Straight Leg Raise: positive at 30 degrees right side/ left side Gaenslen's Test positive Sacral spine : Severe tenderness over the Sacroiliac joint: right side / left side Range of motion: Flexion of the lumbar spine <60 degrees Range of motion: Extension of the lumbar spine <20 degrees Gaenslen's Test positive R Tee's Test positive R Glendy test: positive right side / left side Thigh Thrust Test R side Sacral Thrust Test +R imaging: MRI without contrast of the cervical spine from 12/23/21 reviewed Assessment and plan: Chronic low back pain secondary to lumbar degenerative disc disease , lumbar spondylosis with facet arthropathy without myelopathy Recommendation of R SI joint injection #2. Risks, benefits of procedure discussed and pt verbalized understanding. Denies anticoagulant use or medical history of diabetes. Recommendation of PT 3 times per week x 6 weeks for cervical spine re: M5 0.30 All patient questions answered MAPS reviewed and it was appropriate. I have spent less than 30 minutes on patient care today. Dr Suarez was available by phone for the evaluation of this patient. The time was used to review the medical records including relevant urine studies and Prescription history (MAPs), review of the available imaging, evaluation and examination of the patient, coordination of care with the medical staff and if applicable referring physicians, as well as creation of the medical record PQRS Narrative: Smoking Status Current every day smoker Home Medications: Ambulatory Orders QUEtiapine [SEROquel] 200 mg PO HS 01/16/15 ALPRAZolam [Xanax] 0.5 mg PO DAILY PRN 02/27/19 Levothyroxine Sodium [Synthroid] 50 mcg PO DAILY 02/27/19 Lisinopril-Hctz 20-25 mg [Zestoretic 20-25] 1 tab PO HS 02/27/19 traMADol HCL [Ultram] 50 mg PO BID 02/27/19 Ascorbic Acid [Vitamin C] 1,000 mg PO DAILY 04/20/21 Ascorbic Acid/Multivit-Min [Emergen-C 1,000 mg Packet] 1,000 mg PO DAILY 04/20/21 Aspirin [Adult Low Dose Aspirin EC] 81 mg PO DAILY PRN 04/20/21 Biotin 20,000 mcg PO BID 04/20/21 Celecoxib [CeleBREX] 200 mg PO DAILY 04/20/21 Famotidine 20 mg PO BID PRN 04/20/21 Krill Oil 500 mg PO DAILY 04/20/21 Multivitamin [Multivitamins Adult Gummies] 1 each PO DAILY 04/20/21 Niacin [Niaspan] 500 mg PO DAILY 04/20/21 Turmeric Root Extract [Turmeric] 500 mg PO DAILY 04/20/21 Zinc 50 mg PO DAILY 04/20/21 methocarbamoL [Robaxin-750] 750 mg PO TID 04/20/21 Controlled Substance Measures - Controlled Substance Measures Is patient prescribed a controlled substance at discharge?: No
[2022-04-20 12:12] VITALS: BP 156/81; PULSE 86; RESP 16; TEMP 98.2
== END ==
LOC: PNWHC3 10:20
PROVIDERS: ATTEND Specialist
DX: M51.36 Other intervertebral disc degeneration, lumbar region (principal); M50.30 Other cervical disc degeneration, unspecified cervical region; M47.816 Spondylosis without myelopathy or radiculopathy, lumbar region; G89.29 Other chronic pain; Z88.8 Allergy status to other drugs, medicaments and biological substances; F17.200 Nicotine dependence, unspecified, uncomplicated
CPT/HCPCS: 99211

== ENCOUNTER 2022-05-25 06:48 | Day surgery (SDC) | payer BC ==
[2022-05-23 15:07] VITALS: BMI 41.2
[~2022-05-25 06:48] MED LIST changes: -IV FLUID CONTINUATION 500 ML IV ONE; -MIDAZOLAM 2 MG/2 ML VIAL ONE; -ROPIVACAINE 5MG/ML 20ML VIAL ONE; -fentaNYL (PF) 50 MCG/ML 2 ML AMP ONE; -methylPREDNISolone ACETATE 40 MG/ML 1 ML VIAL ONE
[2022-05-25 07:14] VITALS: TEMP 98.2
[2022-05-25] MEDS ORDERED: LACTATED RINGERS 1,000 ML IV ONE (07:22)
[2022-05-25] MEDS ORDERED: methylPREDNISolone ACETATE 80 MG/ML 1 ML VIAL ONE (07:43)
[2022-05-25] MEDS ORDERED: MIDAZOLAM 2 MG/2 ML VIAL ONE (07:43)
[2022-05-25] MEDS ORDERED: fentaNYL (PF) 50 MCG/ML 2 ML AMP ONE (07:43)
[2022-05-25] MEDS ORDERED: ROPIVACAINE 5MG/ML 20ML VIAL ONE (07:43)
--- NOTE | 2022-05-25 07:58 | P.PCN ---
Date of Procedure: 05/25/22 Procedure(s) Performed: Procedure= Right sacroiliac joints steroid injection under fluoroscopy guidance (fluoroscopy image stored on file in the radiology Department ) Preoperative diagnosis= 1- Right sacroiliitis 2-lumbar facet arthropathy Postoperative diagnosis=Same as preop Diagnosis . Complication = none Condition= stable Anesthesia= moderate sedation with intravenous Versed 2 mg , and fentanyl 100 micrograms . Sedation start time: 07:45 Sedation end time : 07:55 Indication for the procedure= patient complaining of low back pain , examination was positive for severe tenderness over the Right sacroiliac joints , and patient diagnosed with sacroiliitis, for this reason , she was good candidate for sacroiliac joint steroid injection. Description of the procedure= procedure risk and benefits discussed with the patient, including but not limited, risk of infection and bleeding, and ALLERGIC reaction to the medication and not complete pain relief and patient agreed with the preceding patient taken to the operating room, placed in prone position or standard monitors applied to the patient then after induction of anesthesia back prepped with chlorhexidine 3 times , Then under strict sterile technique, first I did the right sacroiliac joint the which was identified under fluoroscopy guidance been local infiltration of the skin and subcu interstitial with lidocaine 1% then 22-gauge Quincke Needle advanced slowly under fluoroscopy and placed in the right sacroiliac joint needle placement confirmed with AP and oblique and lateral view and after appropriate needle placement confirmed and after negative aspiration, or heme , then Ropivacaine 0.5% 5 mL, and 80 mg of Depo-Medrol mixed together and injected in the right sacroiliac joint after negative aspiration patient tolerated the procedure well without any complication.
[2022-05-25 08:04] VITALS: RESP 16
[2022-05-25] MEDS ORDERED: IV FLUID CONTINUATION 1,000 ML IV ONE (08:04)
--- NOTE | 2022-05-25 08:22 | FL ---
Fluoroscopy INDICATION: Pain FINDINGS: Fluoroscopy time: 7 seconds. Images obtained: One. IMPRESSIONS: 1. Documentation of fluoroscopy.
[2022-05-25 08:26] VITALS: BP 142/60; PULSE 62
== END 2022-05-25 08:38 | disposition home or self-care (01) ==
LOC: ORPAIN 06:48
PROVIDERS: ATTEND Specialist
DX: M46.1 Sacroiliitis, not elsewhere classified (principal); M47.816 Spondylosis without myelopathy or radiculopathy, lumbar region; Z88.8 Allergy status to other drugs, medicaments and biological substances
CPT/HCPCS: 27096; J2250; J1040; J3010; J2795; 99152

== ENCOUNTER → 2022-07-31 | Outpatient (CLI) | payer BC | END | disposition home or self-care (01) | LOC: LABWHC1 13:24 | PROVIDERS: ATTEND Family Medicine | DX: Z01.812 Encounter for preprocedural laboratory examination (principal) | CPT/HCPCS: 86850; 86900; 86901 ==

== ENCOUNTER → 2022-08-10 | Outpatient (CLI) | payer BC ==
[2022-08-10 14:42] VITALS: BP 149/86; PULSE 83; RESP 18; TEMP 98.6
--- NOTE | 2022-08-10 14:46 | P.PAINPG ---
PQRS Measure Charge Sheet Comment: A 57 yr old female with a history of severe and chronic low back pain secondary to lumbar degenerative disc diseases and lumbar spondylosis with facet arthropathy without myelopathy presents today for evaluation s/p R SI injection. Pt states she experienced 50% pain relief x 6 wks s/p procedure. Pain level is currently at 2/10 in intensity, intermittent, localized in lower lumbar spine, sharp in character w shooting towards the BL feet. Pain is provoked as high as 10/10 by walking/ standing for periods of 30 min or more. Pain is alleviated with massage therapy monthly for years but was ineffective, chiropractic treatments as needed, heat, (Robaxin, Celebrex, Tramadol), sitting w LEs elevated, repositioning and rest. Pt has a L posterior pelvic mass, firm, oval, 2" x 4" in size, nonfluctuant, tender to touch without overlying erythema. Pt states it gets bigger and smaller over time and she's had it for several years before her L hip replacement in 2017. Interventional pain procedures completed include R SI injection Patient is currently on Tramadol, Robaxin, Celebrex Patient denies any side effects of the medication(s), denies excessive drowsiness or sleepiness, denies suicidal ideation and reports that the current pain medication is helping to control the pain and improve activities of daily living. Patient denies any motor or sensory deficits. Patient denies any fever or night sweats, denies any change in the bowel movements or urination. Physical Examination: -Constitutional: Cooperative. Not in acute distress . - Neurologic: Cranial nerve II to XII intact. No focal neurological deficits. - Psychatric: Alert & oriented x 3. Matching mood & appropriate affect. Judgment and insight intact. - Musculoskeletal: Cervical spine: Muscle bulk/ tone/ strength in the bilateral upper extremities normal Vertebral body tenderness to palpation over Spurling test positive Distraction test positive Facet loading test positive Thoracic spine Muscle bulk / tone/ strength in the bilateral paraspinal muscles normal Vertebral body tender to palpation over Facet loading test positive Lumbar spine: +L posterior TTP over iliac crest Motor bulk/ tone/ strength lower extremities , thigh and legs : 5/5 Deep tendon reflexes : Normal Knee Jerk. Normal Ankle Jerk . Vertebral body tenderness to palpation over Lumbar Facet Loading Test positive Straight Leg Raise: positive at 30 degrees right side/ left side Gaenslen's Test positive Sacral spine : Severe tenderness over the Sacroiliac joint: right side / left side Range of motion: Flexion of the lumbar spine <60 degrees Range of motion: Extension of the lumbar spine <20 degrees Gaenslen's Test positive Tee's Test positive Glendy test: positive right side / left side Thigh Thrust Test Sacral Thrust Test Assessment and plan: Chronic low back pain secondary to lumbar degenerative disc disease , lumbar spondylosis with facet arthropathy without myelopathy Recommendation of PT 2 x/ wk x 6 wks of the lumbar spine re: M51.36 She may return to this clinic as within 6 wks for a re evaluation. Recommendation of L hip x ray re: R 22.42 Left Limb Posterior Mass. Pt may need an MRI if indicated. All patient questions answered I have spent less than 30 minutes on patient care today. Dr Suarez was available by phone for the evaluation of this patient. The time was used to review the medical records including relevant urine studies and Prescription history (MAPs), review of the available imaging, evaluation and examination of the patient, coordination of care with the medical staff and if applicable referring physicians, as well as creation of the medical record PQRS Narrative: Smoking Status Current every day smoker Hx Alcohol Use (MH) Yes Home Medications: Ambulatory Orders QUEtiapine [SEROquel] 200 mg PO HS 01/16/15 ALPRAZolam [Xanax] 0.5 mg PO DAILY PRN 02/27/19 Levothyroxine Sodium [Synthroid] 50 mcg PO DAILY 02/27/19 Lisinopril-Hctz 20-25 mg [Zestoretic 20-25] 1 tab PO HS 02/27/19 traMADol HCL [Ultram] 50 mg PO BID 02/27/19 Ascorbic Acid [Vitamin C] 1,000 mg PO DAILY 04/20/21 Aspirin [Adult Low Dose Aspirin EC] 81 mg PO DAILY PRN 04/20/21 Biotin 20,000 mcg PO BID 04/20/21 Celecoxib [CeleBREX] 200 mg PO DAILY 04/20/21 Krill Oil 500 mg PO DAILY 04/20/21 Multivitamin [Multivitamins Adult Gummies] 1 each PO DAILY 04/20/21 Niacin [Niaspan] 500 mg PO DAILY 04/20/21 Turmeric Root Extract [Turmeric] 500 mg PO DAILY 04/20/21 Zinc 50 mg PO DAILY 04/20/21 methocarbamoL [Robaxin-750] 750 mg PO TID 04/20/21 Controlled Substance Measures - Controlled Substance Measures Is patient prescribed a controlled substance at discharge?: No
== END | disposition home or self-care (01) ==
LOC: PNWHC3 14:08
PROVIDERS: ATTEND Anesthesiology
DX: M47.896 Other spondylosis, lumbar region (principal); M51.36 Other intervertebral disc degeneration, lumbar region
CPT/HCPCS: 99211

== ENCOUNTER → 2022-08-10 | Outpatient (CLI) | payer BC ==
--- NOTE | 2022-08-10 15:26 | XR ---
2 views left hip. DATE: 2021. COMPARISON: None available. CLINICAL HISTORY: Left-sided posterior mass. IMPRESSION: There is a left total hip arthroplasty. No fracture, subluxation or dislocation is seen. No definitive mass is identified, however there are limitations in evaluation of soft tissues by radi ography.
== END | disposition home or self-care (01) ==
LOC: RADXRMAIN 15:07
PROVIDERS: ATTEND Specialist
DX: R22.42 Localized swelling, mass and lump, left lower limb (principal)
CPT/HCPCS: 73502

== ENCOUNTER → 2022-10-05 | Outpatient (CLI) | payer BC ==
[2022-10-05 14:06] VITALS: BP 158/86; PULSE 76; RESP 18; TEMP 98.2
--- NOTE | 2022-10-05 14:47 | P.PAINPG ---
PQRS Measure Charge Sheet Comment: A 57 yr old female with a history of severe and chronic low back pain since 2014 secondary to lumbar DDD and spondylosis with facet arthropathy without myelopathy presents today for LBP. Pain level is currently at 8/10 in intensity, constant, localized in the lower lumbar spine, dull/ achy in character w shooting towards the BL buttock and hips. Pain is provoked by massage therapy and sitting, twisting while doing channeler. Pain is alleviated with 2 stents of PT (March 2022 weekly, then restarted Jul-Aug 2022 x 6 wks which ends next week), medications (Tramadol, Robaxin, Celebrex), topicals, reclining and rest. Interventional pain procedures completed include BL MBB L3-L5 x1. R SI x2. Patient is currently on Tramadol 50mg 360, Robaxin 750mg #90 Patient denies any side effects of the medication(s), denies excessive drowsiness or sleepiness, denies suicidal ideation and reports that the current pain medication is helping to control the pain and improve activities of daily living. Patient denies any motor or sensory deficits. Patient denies any fever or night sweats, denies any change in the bowel movements or urination. Physical Examination: -Constitutional: Cooperative. Not in acute distress . - Neurologic: Cranial nerve II to XII intact. No focal neurological deficits. - Psychatric: Alert & oriented x 3. Matching mood & appropriate affect. Judgment and insight intact. - Musculoskeletal: Cervical spine: Muscle bulk/ tone/ strength in the bilateral upper extremities normal Vertebral body tenderness to palpation over Spurling test positive Distraction test positive Facet loading test positive Thoracic spine Muscle bulk / tone/ strength in the bilateral paraspinal muscles normal Vertebral body tender to palpation over Facet loading test positive Lumbar spine: Motor bulk/ tone/ strength lower extremities , thigh and legs : 5/5 Deep tendon reflexes : Normal Knee Jerk. Normal Ankle Jerk . Vertebral body tenderness to palpation over Lumbar Facet Loading Test positive Straight Leg Raise: positive at 30 degrees right side/ left side Gaenslen's Test positive Sacral spine : Severe tenderness over the Sacroiliac joint: right side / left side Range of motion: Flexion of the lumbar spine <60 degrees Range of motion: Extension of the lumbar spine <20 degrees Gaenslen's Test positive BL Glendy test: positive right side > left side Thigh Thrust Test R BL Sacral Thrust Test Imaging: Lumbar x rays from 08/10/22 reviewed Assessment and plan: Chronic low back pain secondary to lumbar degenerative disc disease, spondylosis with facet arthropathy without myelopathy Recommendation of BL SI injection. May need a series, up to every 3 mo, for optimal pain relief. Risks, benefits of procedure discussed and pt verbalized understanding. Denies anticoagulant use or medical history of diabetes. Recommendation of MRI without contrast of the lumbar spine re: M51.36 All patient questions answered MAPS reviewed and it was appropriate. I have spent less than 30 minutes on patient care today. Dr Suarez was available by phone for the evaluation of this patient. The time was used to review the medical records including relevant urine studies and Prescription history (MAPs), review of the available imaging, evaluation and examination of the patient, coordination of care with the medical staff and if applicable referring physicians, as well as creation of the medical record PQRS Narrative: Smoking Status Current every day smoker Hx Alcohol Use (MH) Yes Home Medications: Ambulatory Orders QUEtiapine [SEROquel] 200 mg PO HS 01/16/15 ALPRAZolam [Xanax] 0.5 mg PO DAILY PRN 02/27/19 Levothyroxine Sodium [Synthroid] 50 mcg PO DAILY 02/27/19 Lisinopril-Hctz 20-25 mg [Zestoretic 20-25] 1 tab PO HS 02/27/19 traMADol HCL [Ultram] 50 mg PO BID 02/27/19 Ascorbic Acid [Vitamin C] 1,000 mg PO DAILY 04/20/21 Aspirin [Adult Low Dose Aspirin EC] 81 mg PO DAILY PRN 04/20/21 Biotin 20,000 mcg PO BID 04/20/21 Celecoxib [CeleBREX] 200 mg PO DAILY 04/20/21 Krill Oil 500 mg PO DAILY 04/20/21 Multivitamin [Multivitamins Adult Gummies] 1 each PO DAILY 04/20/21 Niacin [Niaspan] 500 mg PO DAILY 04/20/21 Turmeric Root Extract [Turmeric] 500 mg PO DAILY 04/20/21 Zinc 50 mg PO DAILY 04/20/21 methocarbamoL [Robaxin-750] 750 mg PO TID 04/20/21 Controlled Substance Measures - Controlled Substance Measures Is patient prescribed a controlled substance at discharge?: No
== END ==
LOC: PNWHC3 13:23
PROVIDERS: ATTEND Specialist
DX: M47.816 Spondylosis without myelopathy or radiculopathy, lumbar region (principal); M51.36 Other intervertebral disc degeneration, lumbar region; G89.29 Other chronic pain; F17.200 Nicotine dependence, unspecified, uncomplicated; Z79.82 Long term (current) use of aspirin; Z88.8 Allergy status to other drugs, medicaments and biological substances; Z88.5 Allergy status to narcotic agent
CPT/HCPCS: 99211

== ENCOUNTER → 2023-08-11 | Outpatient (CLI) | payer BC ==
--- NOTE | 2023-08-12 05:51 | MR ---
EXAMINATION TYPE: MR cspine/lspine wo con DATE OF EXAM: 08/11/2023 COMPARISON: MRI cervical spine December 23, 2021. MRI lumbar spine March 01, 2015 HISTORY: Headache and Neck pain into rt arm, Numbness in rt upper/lower extremity, Low back pain sinc e 2015 into both lower extremities. Cervicalgia. TECHNIQUE: Multiplanar, multisequence imaging of the cervical and lumbar spine are performed without IV contrast. FINDINGS: Cervical spine: Persistent dextroconvex scoliosis centered in the upper thoracic spine. Sagittal images of the cervic al spine show the craniocervical junction to remain within normal limits. The cervical and upper tho racic spinal cord remains normal in caliber and signal. Vertebral alignment is stable and straighten ed on sagittal images. Mild to moderate disc space narrowing throughout the cervical spine as redemo nstrated. The vertebral body heights remain normal. The bone marrow signal intensity remains within normal limits. Ucnw-by-gvnzrvot multilevel anterior spurring is redemonstrated. Axial images at C2-C3 level show bilateral uncovertebral facet degenerative changes without significa nt neural foraminal narrowing. No significant change from prior. Axial images at C3-C4 level show central disc protrusion mildly effacing the anterior thecal sac. No significant change from prior. Axial images at C4-C5 level demonstrates broad-based left paracentral disc protrusion effacing the an terior thecal sac with mild to moderate bilateral neural foraminal narrowing. No significant change f rom prior. Axial images at C5-C6 level demonstrates broad-based left paracentral disc protrusion effacing the an terior thecal sac with bilateral neural foraminal narrowing. No significant change from prior. Axial images at C6-C7 level redemonstrate broad-based posterior disc protrusion mildly effacing the a nterior thecal sac. Patent bilateral neural foramina. No significant change from prior. Axial images at C7-T1 levels remain within normal limits. IMPRESSION: Scoliosis with multilevel degenerative changes in the cervical spine as detailed above. N o significant change from most recent prior MRI. Lumbar Spine: Sagittal images of the lumbar spine show vertebral body heights to remain satisfactory. There is grad e 1 retrolisthesis L1 on L2 and L2 on L3 on current study. Multilevel disc desiccation is redemonstra ashley. There is now moderate disc space narrowing at L2-L3 level. The conus medullaris remains stable in position in the mid L2 level without abnormal signal. The bone marrow signal intensity remains wi thin normal limits. Mild to moderate multilevel anterior spurring is redemonstrated. Axial images at T12-L1 level shows mild broad-based disc bulge mildly effacing the anterior thecal sa c with mild bilateral ligamentum flavum hypertrophy. Findings are new from prior study. Axial images at L1-L2 level show spondylolisthesis with mild to moderate broad disc bulge effacing th e anterior thecal sac and mild facet arthropathy bilaterally. Findings new from prior study. Axial images at L2-L3 level show spondylolisthesis with mild broad disc bulge mildly effacing the ant erior thecal sac. Findings more prominent from prior study. Axial images at L3-L4 and L4-L5 levels remain within normal limits. Axial images at L5-S1 level shows mild facet arthropathy bilaterally with mild broad disc bulge minim ally effacing the anterior thecal sac. There is mild right sided anterior inferior neural foraminal n arrowing. Findings new from prior. Paraspinal muscle bulk is maintained. IMPRESSION: Multilevel spondylolisthesis and degenerative change in the lumbar spine as detailed abov e are new from 2015 MRI.
== END | disposition home or self-care (01) ==
LOC: RADMRIMAIN 07:57
PROVIDERS: ATTEND Family Medicine
DX: M41.82 Other forms of scoliosis, cervical region (principal); M50.31 Other cervical disc degeneration, high cervical region; M47.817 Spondylosis without myelopathy or radiculopathy, lumbosacral region; M51.37 Other intervertebral disc degeneration, lumbosacral region; M43.16 Spondylolisthesis, lumbar region
CPT/HCPCS: 72141; 72148

== ENCOUNTER → 2023-09-27 | Outpatient (CLI) | payer BC ==
--- NOTE | 2023-09-28 07:40 | XR ---
EXAMINATION TYPE: XR chest 2V DATE OF EXAM: 09/27/2023 5:05 PM CLINICAL INDICATION:Female, 58 years old with history of [id number] SOB; H COMPARISON: Chest radiographs from 08/30/2012 TECHNIQUE: XR chest 2V Frontal and lateral views of the chest. FINDINGS: Lungs/Pleura: There is no evidence of pleural effusion, focal consolidation, or pneumothorax. Pulmonary vascularity: Unremarkable. Heart/mediastinum: Cardiomediastinal silhouette is unremarkable. Musculoskeletal: No acute osseous pathology. IMPRESSION: No acute cardiopulmonary disease/process.
== END | disposition home or self-care (01) ==
LOC: RADXRYALE 16:58
PROVIDERS: ATTEND Family Medicine
DX: R06.02 Shortness of breath (principal)
CPT/HCPCS: 71046

== ENCOUNTER → 2023-11-15 | Outpatient (CLI) | payer BC ==
[2023-11-15 13:04] VITALS: BP 144/88; PULSE 70; RESP 16; TEMP 97.9
--- NOTE | 2023-11-15 14:20 | P.PAINPG ---
Objective - Vital Signs Vital signs: Intake & Output 11/14/23 11/15/23 11/15/23 18:59 06:59 18:59 Weight 99.79 kg PQRS Measure Charge Sheet Comment: A 58 yr old female with a history of severe and chronic LBP since 2014 secondary to lumbar DDD and spondylosis with facet arthropathy without myelopathy presents today for evaluation. Pain level is currently at 10/10 in intensity, constant, localized in the lower lumbar spine, predominantly axial, dull in character w occasional shooting towards the BL buttock and hips. 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 Pain is alleviated with 2 stents of PT (March 2022 weekly, then restarted Jul-Aug 2022 x 8 wks for a total of 12 wks), physician guided home exercises 5 times weekly since Aug 2022, medications, topicals, reclining and rest. Interventional pain procedures completed include BL MBB L3-L5 x1, R SI x2 Patient is currently on Tramadol 50mg 360, Robaxin 750mg #90, Celebrex Patient denies any side effects of the medication(s), denies excessive drowsiness or sleepiness, denies suicidal ideation and reports that the current pain medication is helping to control the pain and improve activities of daily living. Patient denies any motor or sensory deficits. Patient denies any fever or night sweats, denies any change in the bowel movements or urination. Physical Examination: -Constitutional: Cooperative. Not in acute distress . - Neurologic: Cranial nerve II to XII intact. No focal neurological deficits. - Psychatric: Alert & oriented x 3. Matching mood & appropriate affect. Judgment and insight intact. - Musculoskeletal: Cervical spine: Muscle bulk/ tone/ strength in the bilateral upper extremities normal Vertebral body tenderness to palpation over Spurling test positive Distraction test positive Facet loading test positive Thoracic spine Muscle bulk / tone/ strength in the bilateral paraspinal muscles normal Vertebral body tender to palpation over Facet loading test positive Lumbar spine: Motor bulk/ tone/ strength lower extremities , thigh and legs : 5/5 Deep tendon reflexes : Normal Knee Jerk. Normal Ankle Jerk . Vertebral body tenderness to palpation over Lumbar Facet Loading Test positive BL L4-L5, L5-S1 Straight Leg Raise: positive at 30 degrees right side/ left side Gaenslen's Test positive Sacral spine : Severe tenderness over the Sacroiliac joint: right side / left side Range of motion: Flexion of the lumbar spine <60 degrees Range of motion: Extension of the lumbar spine <20 degrees Gaenslen's Test positive BL Glendy test: positive right side > left side Thigh Thrust Test R BL Sacral Thrust Test Imaging: Lumbar x rays from 08/10/22 reviewed MRI noncontrast of the lumbar spine from 08/11/23 reviewed Assessment and plan: Chronic LBP secondary to lumbar DDD, spondylosis with facet arthropathy without myelopathy Recommendation of BL MBB L4-L5, L5-S1 #1. May need a series of injections, up until RFA, for optimal pain relief. Risks, benefits of procedure discussed and pt verbalized understanding. Protocol for discontinuation/ continuation of medications hiro procedure discussed. All patient questions answered MAPS reviewed and it was appropriate. I have spent less than 30 minutes on patient care today. Dr Suarez was available by phone for the evaluation of this patient. The time was used to review the medical records including relevant urine studies and Prescription history (MAPs), review of the available imaging, evaluation and examination of the patient, coordination of care with the medical staff and if applicable referring physicians, as well as creation of the medical record PQRS Narrative: Smoking Status Current every day smoker Hx Alcohol Use (MH) Yes Home Medications: Ambulatory Orders QUEtiapine [SEROquel] 200 mg PO HS 01/16/15 ALPRAZolam [Xanax] 0.5 mg PO DAILY PRN 02/27/19 Levothyroxine Sodium [Synthroid] 50 mcg PO DAILY 02/27/19 Lisinopril-Hctz 20-25 mg [Zestoretic 20-25] 1 tab PO HS 02/27/19 traMADol HCL [Ultram] 50 mg PO BID 02/27/19 Ascorbic Acid [Vitamin C] 1,000 mg PO DAILY 04/20/21 Aspirin [Adult Low Dose Aspirin EC] 81 mg PO DAILY PRN 04/20/21 Biotin 20,000 mcg PO BID 04/20/21 Celecoxib [CeleBREX] 200 mg PO DAILY 04/20/21 Krill Oil 500 mg PO DAILY 04/20/21 Multivitamin [Multivitamins Adult Gummies] 1 each PO DAILY 04/20/21 Niacin [Niaspan] 500 mg PO DAILY 04/20/21 Turmeric Root Extract [Turmeric] 500 mg PO DAILY 04/20/21 Zinc 50 mg PO DAILY 04/20/21 methocarbamoL [Robaxin-750] 750 mg PO TID 04/20/21 Controlled Substance Measures - Controlled Substance Measures Is patient prescribed a controlled substance at discharge?: No
== END ==
LOC: PNWHC3 12:06
PROVIDERS: ATTEND Specialist
DX: M62.838 Other muscle spasm (principal); M54.50 Low back pain, unspecified; M51.37 Other intervertebral disc degeneration, lumbosacral region; M47.817 Spondylosis without myelopathy or radiculopathy, lumbosacral region; Z88.8 Allergy status to other drugs, medicaments and biological substances; F17.200 Nicotine dependence, unspecified, uncomplicated
CPT/HCPCS: 99211

== ENCOUNTER 2023-11-30 07:11 | Day surgery (SDC) | payer BC ==
[2023-11-30] MEDS: LACTATED RINGERS 1,000 ML IV SCH ×2 (07:30→08:00)
[2023-11-30] MEDS ORDERED: MIDAZOLAM 2 MG/2 ML VIAL ONE (08:01)
[2023-11-30] MEDS ORDERED: fentaNYL (PF) 50 MCG/ML 2 ML AMP ONE (08:01)
[2023-11-30] MEDS ORDERED: ROPIVACAINE 5MG/ML 20ML VIAL ONE (08:05)
[2023-11-30 08:10] VITALS: TEMP 98.2
[2023-11-30] MEDS ORDERED: LACTATED RINGERS 1,000 ML IV ONE (08:32)
--- NOTE | 2023-11-30 08:39 | P.PCN ---
Description of Procedure: Preprocedure diagnosis. 1. Lumbar spondylosis with facet joint arthropathy without myelopathy. 2. Lumbar degenerative disc disease. Postprocedure diagnosis. As above. Procedure done. Bilateral diagnostic block with local anesthetics at L3, L4, L5 medial branch to target the facet joint L4- 5 and L5-S1 with fluoroscopic guidance (fluoroscopy images are available in the radiology department) . Anesthesia. As per anesthesia department. In OR, continuous pulse ox, EKG, blood pressure and verbal communication was maintained. Blood loss. Minimal. Indication. The patient has low back pain secondary to lumbar facet joint arthropathy. Discussed the procedure and alternative and complications which includes infection, bleeding, nerve damage, paralysis ,aggravation of pain. Patient understands and all questions were answered. Patient iunderstands that if any pain relief occurs it will last for a few hours to a few days maximum. Procedure description. After getting consent patient was taken in the OR in prone position. Back prepped with chlorhexidine and draped in sterile fashion. After injecting 5 mL of plain 1% lidocaine subcutaneously, a 22-gauge spinal needle was introduced under tunnel vision of the fluoroscope at the junction of the superior articular process with RIGHT ala of the sacrum. With slight oblique fluoroscope, after injecting 5 mL of plain 1% lidocaine subcutaneously, a 22-gauge spinal needle was introduced under tunnel vision of the fluoroscope at the junction of the superior articular process with RIGHT L5 transverse process, junction of the superior articular process with the RIGHT L4 transverse process. Negative CSF, negative blood, negative paresthesia. After needle p osition confirmation by AP and crosstable lateral view, after negative aspiration, half milliliters of 0.5% ropivacaine were injected at each point. In exactly same way, LEFT sided injections were done at the following 3 points. Junction of the superior articular process with left ala of the sacrum, junction of the superior articular process with the left L5 transverse process, junction of the superior articular process with left L4 transverse process using 0.5 mL of 0.5% preservative-free ropivacaine at each point. Spinal needles were taken out and bandages were applied. Disposition. Patient tolerated the procedure well. No complication. Discharged home in stable condition.
[2023-11-30 08:43] VITALS: RESP 18
--- NOTE | 2023-11-30 09:06 | FL ---
EXAMINATION TYPE: FL guided pain mgmt statistic DATE OF EXAM: 11/30/2023 FLUOROSCOPY Fluoroscopy time of 39 seconds was used during bilateral lumbar facet blocks. 4 image/s document/s t he procedure. 0.25054 Gycm2 DAP
[2023-11-30 09:13] VITALS: BP 103/56; PULSE 65
== END 2023-11-30 09:18 | disposition home or self-care (01) ==
LOC: ORPAIN 07:11
PROVIDERS: ATTEND Pain Medicine Interventional Pain Medicine
DX: M47.816 Spondylosis without myelopathy or radiculopathy, lumbar region (principal); M51.36 Other intervertebral disc degeneration, lumbar region
CPT/HCPCS: 64493; 64494 ×2; J2250; J3010; J2795

== ENCOUNTER → 2023-12-19 | Outpatient (CLI) | payer BC ==
[2023-12-19 13:08] VITALS: BP 140/86; PULSE 101; RESP 15; TEMP 98.6
--- NOTE | 2023-12-19 14:49 | P.PAINPG ---
PQRS Measure Charge Sheet Comment: A 58 yr old female with a history of severe and chronic LBP since 2014 secondary to lumbar DDD and spondylosis with facet arthropathy without myelopathy presents today for evaluation s/p BL MBB L3-L5 #1. Pt states she experienced 0 % pain relief s/p procedure. Pain level is currently at 10 /10 in intensity, constant, localized in the lower lumbar spine, predominantly axial, dull in character w occasional shooting towards the BLEs. 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 Pain is alleviated with 2 stents of PT (March 2023 weekly, then restarted Jul-Aug 2023 x 8 wks for a total of 12 wks), physician guided home exercises 5 times weekly since Aug 2023, medications, topicals, reclining and rest. Oswestry axial pain score of 28. Interventional pain procedures completed include BL MBB L3-L5 x2, R SI x2 Patient is currently on Tramadol 50mg 360, Robaxin 750mg #90, Celebrex Patient denies any side effects of the medication(s), denies excessive drowsiness or sleepiness, denies suicidal ideation and reports that the current pain medication is helping to control the pain and improve activities of daily living. Patient denies any motor or sensory deficits. Patient denies any fever or night sweats, denies any change in the bowel movements or urination. Physical Examination: -Constitutional: Cooperative. Not in acute distress . - Neurologic: Cranial nerve II to XII intact. No focal neurological deficits. - Psychatric: Alert & oriented x 3. Matching mood & appropriate affect. Judgment and insight intact. - Musculoskeletal: Cervical spine: Muscle bulk/ tone/ strength in the bilateral upper extremities normal Vertebral body tenderness to palpation over Spurling test positive Distraction test positive Facet loading test positive Thoracic spine Muscle bulk / tone/ strength in the bilateral paraspinal muscles normal Vertebral body tender to palpation over Facet loading test positive Lumbar spine: Motor bulk/ tone/ strength lower extremities , thigh and legs : 5/5 Deep tendon reflexes : Normal Knee Jerk. Normal Ankle Jerk . Vertebral body tenderness to palpation over L5 Lumbar Facet Loading Test Straight Leg Raise: positive at 30 degrees right side/ left side Gaenslen's Test positive Sacral spine : Severe tenderness over the Sacroiliac joint: right side / left side Range of motion: Flexion of the lumbar spine <60 degrees Range of motion: Extension of the lumbar spine <20 degrees Gaenslen's Test positive BL Glendy test: positive right side > left side Thigh Thrust Test R BL Sacral Thrust Test Imaging: Lumbar x rays from 08/10/22 reviewed MRI noncontrast of the lumbar spine from 08/11/23 reviewed Assessment and plan: Chronic LBP secondary to lumbar DDD, spondylosis with facet arthropathy without myelopathy Recommendation of PERCY L5-S1 #1. May need a series of injections, up until RFA, for optimal pain relief. Risks, benefits of procedure discussed and pt verbalized understanding. Protocol for discontinuation/ continuation of medications hiro procedure discussed. All patient questions answered MAPS reviewed and it was appropriate. I have spent less than 30 minutes on patient care today. Dr Suarez was available by phone for the evaluation of this patient. The time was used to review the medical records including relevant urine studies and Prescription history (MAPs), review of the available imaging, evaluation and examination of the patient, coordination of care with the medical staff and if applicable referring physicians, as well as creation of the medical record PQRS Narrative: Smoking Status Current every day smoker Hx Alcohol Use (MH) No Home Medications: Ambulatory Orders QUEtiapine [SEROquel] 200 mg PO HS 01/16/15 ALPRAZolam [Xanax] 0.5 mg PO DAILY PRN 02/27/19 Levothyroxine Sodium [Synthroid] 50 mcg PO DAILY 02/27/19 Lisinopril-Hctz 20-25 mg [Zestoretic 20-25] 1 tab PO HS 02/27/19 traMADol HCL [Ultram] 50 mg PO BID 02/27/19 Ascorbic Acid [Vitamin C] 1,000 mg PO DAILY 04/20/21 Aspirin [Adult Low Dose Aspirin EC] 81 mg PO DAILY PRN 04/20/21 Biotin 20,000 mcg PO BID 04/20/21 Celecoxib [CeleBREX] 200 mg PO DAILY 04/20/21 Krill Oil 500 mg PO DAILY 04/20/21 Multivitamin [Multivitamins Adult Gummies] 1 each PO DAILY 04/20/21 Niacin [Niaspan] 500 mg PO DAILY 04/20/21 Turmeric Root Extract [Turmeric] 500 mg PO DAILY 04/20/21 Zinc 50 mg PO DAILY 04/20/21 methocarbamoL [Robaxin-750] 750 mg PO TID 04/20/21 Albuterol Inhaler [Ventolin Hfa Inhaler] 1 - 2 puff INHALATION Q6H PRN 11/29/23 Albuterol Nebulized [Ventolin Nebulized] 2.5 mg INHALATION Q6H 11/29/23 Controlled Substance Measures - Controlled Substance Measures Is patient prescribed a controlled substance at discharge?: No
== END ==
LOC: PNWHC3 12:23
PROVIDERS: ATTEND Specialist
DX: M51.36 Other intervertebral disc degeneration, lumbar region (principal); M47.816 Spondylosis without myelopathy or radiculopathy, lumbar region; G89.29 Other chronic pain; F17.200 Nicotine dependence, unspecified, uncomplicated; Z79.82 Long term (current) use of aspirin; Z88.8 Allergy status to other drugs, medicaments and biological substances; Z88.2 Allergy status to sulfonamides
CPT/HCPCS: 99211

== ENCOUNTER 2024-01-01 07:34 | Day surgery (SDC) | payer BC ==
[~2024-01-01 07:34] MED LIST changes: -LIDOCAINE 1% (10MG/ML) FOR IV START INTRADERMA PRN
[2024-01-01] MEDS ORDERED: IOPAMIDOL M200 10 ML VIAL ONE (08:51)
[2024-01-01] MEDS ORDERED: methylPREDNISolone ACETATE 80 MG/ML 1 ML VIAL ONE (08:51)
--- NOTE | 2024-01-01 08:58 | P.PCN ---
Date of Procedure: 01/01/24 Procedure(s) Performed: PREOPERATIVE DIAGNOSIS: 1- Lumbar Degenerative Disc Diseases 2-Lumbar spondylosis with Facet arthropathy without myelopathy. POSTOPERATIVE DIAGNOSIS: 1-lumbar degenerative disc disease. 2-lumbar spondylosis with facet arthropathy without myelopathy. PROCEDURE 1. Lumbar epidural steroid injection under fluoroscopic guidance at the L5-S1 level. (Fluoroscopy imaging was available in radiology department) 2. Lumbar epidurogram. ANESTHESIA: Lidocaine 1% 3 and then only. EBL: Minimal PROCEDURE INDICATION: The patient with low back pain and radiculitis symptoms unresponsive to conservative treatment. Fluoroscopy was used to optimize visualization of the needle placement and to maximize safety. PROCEDURE DESCRIPTION / TECHNIQUE: The patient was seen and identified in the preoperative area. Risks, benefits, complications including but not limited to infections ,bleeding ,allergic reaction to the medications ,nerve damage and not complete pain releife , and alternatives were discussed with the patient. The patient agreed to proceed with the procedure and signed the consent, and vital signs were stable. Patient was taken to the OR and time out was completed. The patient was placed in the prone position on procedure table and a pillow was placed under the a bdomen to reduce lumbar lordosis. The lumbosacral area was prepped and draped in the usual sterile fashion.ere closely monitored during the procedure. Vital signs was monitered during the entire procedure. Using anterior-posterior fluoroscopy, the L5-S1 interlaminar space was identified and the skin over this site was marked and then infiltrated with 1% lidocaine subcutaneously. Subsequently, a 20-gauge Tuohy epidural needle was inserted and advanced toward the epidural space using the ``Loss of resistance technique and guided by AP and lateral fluoroscopy. The correct needle position in the epidural space was verified with the injection of 2 mL of the water soluble contrast dye Isovue 200 contrast and observing an excellent epidurogram with the epidural spread of the dye, after negative aspiration for blood and CSF and in the absence of paresthesias. Again after negative aspiration, a 6 ml mixture containing 80 mg of Depo-medrol ( Preservetive Free ), and 2 ml of preservative free Normal Saline, and 2 ml of preservative free lidocaine 1% solution was injected and a washout of epidurogram was seen. Needle was withdrawn intact, skin was cleansed, and bandages were applied. COMPLICATIONS: None DISPOSITION / PLANS: The patient was placed in a supine position and transferred to the recovery area in a stable condition for observation. There was no evidence of lower extremity motor or sensory deficit after the procedure. Patient was discharged from the recovery room after meeting discharge criteria. Home discharge instructions were given to the patient by the staff. The patient was reexamined prior to discharge. The patient will schedule a follow up in the clinic in 2-4 weeks.
[2024-01-01 09:11] VITALS: TEMP 98.3
[2024-01-01 09:48] VITALS: BP 114/74; PULSE 63; RESP 20
--- NOTE | 2024-01-01 11:59 | FL ---
EXAMINATION TYPE: FL guided pain mgmt statistic Intraoperative/procedural fluoroscopic services were provided. Total fluoroscopy time is 1.3 seconds with a total of 1 submitted images to PACS. Please se e the operative/procedural note for further details. DAP: 0.15355 mGym2
== END 2024-01-01 09:40 | disposition home or self-care (01) ==
LOC: ORPAIN 07:34
PROVIDERS: ATTEND Specialist
DX: M47.816 Spondylosis without myelopathy or radiculopathy, lumbar region (principal); M51.36 Other intervertebral disc degeneration, lumbar region; Z88.2 Allergy status to sulfonamides; Z88.8 Allergy status to other drugs, medicaments and biological substances
CPT/HCPCS: 62323; J1040; Q9966

== ENCOUNTER → 2024-01-23 | Outpatient (CLI) | payer BC ==
[2024-01-23 14:40] VITALS: BP 174/89; PULSE 96; RESP 15; TEMP 97.4
--- NOTE | 2024-01-23 14:41 | P.PAINPG ---
PQRS Measure Charge Sheet Comment: A 58 yr old female with a history of severe and chronic LBP since 2014 secondary to lumbar DDD and spondylosis with facet arthropathy without myelopathy presents today for evaluation s/p PERCY L5-S1 #1. Pt states she experienced 50 % pain relief x 2-3 wk s/p procedure. Pain level is currently at 8 /10 in intensity, constant, localized in the lower lumbar spine, predominantly axial, dull in character w occasional shooting towards the BLEs. 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 Pain is alleviated with 2 stents of PT (March 2023 weekly, then restarted Jul-Aug 2023 x 8 wks for a total of 12 wks), physician guided home exercises 5 times weekly since Aug 2023, medications, topicals, reclining and rest. Oswestry axial pain score of 28. Interventional pain procedures completed include BL MBB L3-L5 x2, L SI x1 (2015), R SI x2 (2021) Patient is currently on Tramadol 50mg #60, Neurontin, Robaxin 750mg #90, Celebrex Patient denies any side effects of the medication(s), denies excessive drowsiness or sleepiness, denies suicidal ideation and reports that the current pain medication is helping to control the pain and improve activities of daily living. Patient denies any motor or sensory deficits. Patient denies any fever or night sweats, denies any change in the bowel movements or urination. Physical Examination: -Constitutional: Cooperative. Not in acute distress . - Neurologic: Cranial nerve II to XII intact. No focal neurological deficits. - Psychatric: Alert & oriented x 3. Matching mood & appropriate affect. Judgment and insight intact. - Musculoskeletal: Cervical spine: Muscle bulk/ tone/ strength in the bilateral upper extremities normal Vertebral body tenderness to palpation over Spurling test positive Distraction test positive Facet loading test positive Thoracic spine Muscle bulk / tone/ strength in the bilateral paraspinal muscles normal Vertebral body tender to palpation over Facet loading test positive Lumbar spine: Motor bulk/ tone/ strength lower extremities , thigh and legs : 5/5 Deep tendon reflexes : Normal Knee Jerk. Normal Ankle Jerk . Vertebral body tenderness to palpation L5 Lumbar Facet Loading Test Straight Leg Raise: positive at 30 degrees right side/ left side Gaenslen's Test positive Sacral spine : Severe tenderness over the Sacroiliac joint: right side / left side Range of motion: Flexion of the lumbar spine <60 degrees Range of motion: Extension of the lumbar spine <20 degrees Gaenslen's Test positive BL Glendy test: positive right side > left side Thigh Thrust Test R BL Sacral Thrust Test Imaging: Lumbar x rays from 08/10/22 reviewed MRI noncontrast of the lumbar spine from 08/11/23 reviewed Assessment and plan: Chronic LBP secondary to lumbar DDD, spondylosis with facet arthropathy without myelopathy Recommendation of PERCY L5-S1 #2. May need a series of injections for optimal pain relief. Risks, benefits of procedure discussed and pt verbalized understanding. Protocol for discontinuation/ continuation of medications hiro procedure discussed. All patient questions answered MAPS reviewed and it was appropriate. I have spent less than 30 minutes on patient care today. Dr Suarez was available by phone for the evaluation of this patient. The time was used to review the medical records including relevant urine studies and Prescription history (MAPs), review of the available imaging, evaluation and examination of the patient, coordination of care with the medical staff and if applicable referring physicians, as well as creation of the medical record PQRS Narrative: Smoking Status Current every day smoker Hx Alcohol Use (MH) No Home Medications: Ambulatory Orders QUEtiapine [SEROquel] 200 mg PO HS 01/16/15 ALPRAZolam [Xanax] 0.5 mg PO DAILY PRN 02/27/19 Levothyroxine Sodium [Synthroid] 50 mcg PO DAILY 02/27/19 Lisinopril-Hctz 20-25 mg [Zestoretic 20-25] 1 tab PO HS 02/27/19 traMADol HCL [Ultram] 50 mg PO TID 02/27/19 Ascorbic Acid [Vitamin C] 1,000 mg PO BID 04/20/21 Aspirin [Adult Low Dose Aspirin EC] 81 mg PO DAILY PRN 04/20/21 Biotin 20,000 mcg PO BID 04/20/21 Celecoxib [CeleBREX] 200 mg PO BID 04/20/21 Krill Oil 500 mg PO HS 04/20/21 Multivitamin [Multivitamins Adult Gummies] 1 each PO HS 04/20/21 methocarbamoL [Robaxin-750] 750 mg PO TID 04/20/21 Albuterol Inhaler [Ventolin Hfa Inhaler] 1 - 2 puff INHALATION Q6H PRN 11/29/23 Albuterol Nebulized [Ventolin Nebulized] 2.5 mg INHALATION Q6H PRN 11/29/23 Controlled Substance Measures - Controlled Substance Measures Is patient prescribed a controlled substance at discharge?: No
== END ==
LOC: PNWHC3 13:39
PROVIDERS: ATTEND Specialist
DX: M51.36 Other intervertebral disc degeneration, lumbar region (principal); M47.816 Spondylosis without myelopathy or radiculopathy, lumbar region; G89.29 Other chronic pain; F17.200 Nicotine dependence, unspecified, uncomplicated; Z88.8 Allergy status to other drugs, medicaments and biological substances; Z88.2 Allergy status to sulfonamides
CPT/HCPCS: 99211

== ENCOUNTER 2024-02-07 07:51 | Day surgery (SDC) | payer BC ==
[2024-02-05 13:10] VITALS: BMI 45.6
[2024-02-07] MEDS ORDERED: LACTATED RINGERS 1,000 ML IV SCH (08:00)
[2024-02-07 08:47] VITALS: TEMP 98
[2024-02-07] MEDS ORDERED: IOPAMIDOL M200 10 ML VIAL ONE (09:04)
[2024-02-07] MEDS ORDERED: methylPREDNISolone ACETATE 80 MG/ML 1 ML VIAL ONE ×2 (09:04)
--- NOTE | 2024-02-07 09:09 | P.PCN ---
Date of Procedure: 02/07/24 Procedure(s) Performed: PREOPERATIVE DIAGNOSIS: 1- Lumbar Degenerative Disc Diseases 2-Lumbar spondylosis with Facet arthropathy without myelopathy. POSTOPERATIVE DIAGNOSIS: 1-lumbar degenerative disc disease. 2-lumbar spondylosis with facet arthropathy without myelopathy. PROCEDURE 1. Lumbar epidural steroid injection under fluoroscopic guidance at the L5-S1 level. (Fluoroscopy imaging was available in radiology department) 2. Lumbar epidurogram. ANESTHESIA: Lidocaine 1% 3 and then only. EBL: Minimal PROCEDURE INDICATION: The patient with low back pain and radiculitis symptoms unresponsive to conservative treatment. Fluoroscopy was used to optimize visualization of the needle placement and to maximize safety. PROCEDURE DESCRIPTION / TECHNIQUE: The patient was seen and identified in the preoperative area. Risks, benefits, complications including but not limited to infections ,bleeding ,allergic reaction to the medications ,nerve damage and not complete pain releife , and alternatives were discussed with the patient. The patient agreed to proceed with the procedure and signed the consent, and vital signs were stable. Patient was taken to the OR and time out was completed. The patient was placed in the prone position on procedure table and a pillow was placed under the ab domen to reduce lumbar lordosis. The lumbosacral area was prepped and draped in the usual sterile fashion.ere closely monitored during the procedure. Vital signs was monitered during the entire procedure. Using anterior-posterior fluoroscopy, the L5-S1 interlaminar space was identified and the skin over this site was marked and then infiltrated with 1% lidocaine subcutaneously. Subsequently, a 20-gauge Tuohy epidural needle was inserted and advanced toward the epidural space using the ``Loss of resistance technique and guided by AP and lateral fluoroscopy. The correct needle position in the epidural space was verified with the injection of 2 mL of the water soluble contrast dye Isovue 200 contrast and observing an excellent epidurogram with the epidural spread of the dye, after negative aspiration for blood and CSF and in the absence of paresthesias. Again after negative aspiration, a 6 ml mixture containing 80 mg of Depo-medrol ( Preservetive Free ), and 2 ml of preservative free Normal Saline, and 2 ml of preservative free lidocaine 1% solution was injected and a washout of epidurogram was seen. Needle was withdrawn intact, skin was cleansed, and bandages were applied. COMPLICATIONS: None DISPOSITION / PLANS: The patient was placed in a supine position and transferred to the recovery area in a stable condition for observation. There was no evidence of lower extremity motor or sensory deficit after the procedure. Patient was discharged from the recovery room after meeting discharge criteria. Home discharge instructions were given to the patient by the staff. The patient was reexamined prior to discharge. The patient will schedule a follow up in the clinic in 2-4 weeks.
[2024-02-07 09:29] VITALS: BP 143/81; PULSE 66; RESP 16
--- NOTE | 2024-02-07 13:22 | FL ---
Fluoroscopy INDICATION: Pain FINDINGS: Fluoroscopy time: 3.2 seconds. Total dose area product (DAP) in uGy*m?, mGy*cm? (or similar): 0.21997 Images obtained: 2. IMPRESSION: 1. Documentation of fluoroscopy.
== END 2024-02-07 09:37 | disposition home or self-care (01) ==
LOC: ORPAIN 07:51
PROVIDERS: ATTEND Specialist
DX: M51.16 Intervertebral disc disorders with radiculopathy, lumbar region (principal); M47.26 Other spondylosis with radiculopathy, lumbar region; Z88.8 Allergy status to other drugs, medicaments and biological substances; Z79.1 Long term (current) use of non-steroidal anti-inflammatories (NSAID)
CPT/HCPCS: 62323; Q9966; J1010

== ENCOUNTER → 2024-02-28 | Outpatient (CLI) | payer BC ==
--- NOTE | 2024-02-28 12:34 | P.PAINPG ---
Subjective Progress Note Date: 02/28/24 Principal diagnosis: lumbar back pain, and bilateral leg pain Ms. Teodoro Black is a 58 -year-old pleasant female came to the [facility] pain clinic for postprocedure evaluation after L5-S1 epidural steroid injection on 02/07/2024 . Patient has ongoing pain for many years. Patient describes pain is aching, throbbing, constant type of pain. Pain is radiating to bilateral lower extremity causing numbness and tingling sensation. Patient rated pain levels are 8 out of 10 in severity. With the help of medications pain levels are 6-7 out of 10 in severity. after the epidural steroid injection her pain improved more than 70% for 2 weeks duration, it started gradually coming back. Activities making pain worse. Medications, resting, intervention procedures helping in relieving patient's pain. Patient pain some days better than others. Overall activities decreased secondary to pain. Because of the pain sometimes patient is feeling lack of sleep, interest, and energy. Denied any side effects with the medications. Denied any bowel or bladder problems at this time. Patient is using 4-prong cane for walking support. Patient denies any suicidal or homicidal ideations intent or plan. Patient denies any auditory or visual hallucinations. Patient denied any red flag symptoms related to pain. 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 Sensation grossly intact Lower extremity: Normal strength, and decreased range of motion secondary to pain Lumbar spine: Paravertebral tenderness: positive Lumbar facet load test : positive Sacroiliac joint tenderness: Positive - Constitutional Constitutional Comment(s): 12 total point review of symptoms negative except as mentioned in the history of present illness Assessment and Plan Assessment: lumbar spondylosis without myelopathy Lumbar radiculopathy Myofascial pain syndrome Plan: #1 Diagnoses, prognosis, and multiple treatment options including but not limited to physical therapy, interventional therapy, adjunct medication therapy, narcotic medication, and surgical options were discussed with the patient. And all questions were answered to the patient's satisfaction. #2 treatment plan agreement : Patient was thoroughly discussed regarding the treatment options, alternatives, and importance of exercises as tolerated. Patient clearly understood. #3 Patient was counseled on importance of regular exercise. Including harman chi, aerobic exercises as tolerated. Which helps for chronic pain, and overall well- being. Patient also counseled regarding importance of weight control rolling chronic pain, and overall other health issues. By altering diet habits, minimizing sugar intake, and processed foods helps in minimizing Inflammation. Also discussed with the patient regarding intermittent fasting.. #4 investigations: MAPS-not reviewed , urine drug test- not done #5 diagnostic tests: none #6 consultation : continue home exercise program # 7 interventional procedures: lumbar L5-S1 epidural steroid injection #3 . Procedure, complications, alternatives discussed with the patient. #8 medications plan from the pain clinic #9 morphine milligrams equivalents dose ( MME) per day: none # 10 TENS unit's, and percussion massage device #11 disposition: scheduled to follow up with pain clinic in 8 weeks duration. Time with Patient: Less than 30 PQRS Measure Charge Sheet Measure #130: Documentation of Current Meds in Medical Chart: Patient's medications documented in chart Measure #226: Tobacco Use: Screen & Cessation Intervention: Pt not a tobacco user Measure #111: Pneumonia Vaccination: Pneumococcal vaccine NOT administered or previously given Measure #47: Advance Care Plan: Advance care planning discussed & documented, pt chose/unable to give Measure #412: Opioid Treatment Agreement: No documentation of signed opioid treatment agreement Measure #408: Opioid Therapy Follow-up Evaluation: Patient had NO f/u eval minimum every 3 months during opioid therapy Measure #317: Preventitive Care & Scrn High Bld Press & F/U: Pre-hypertensive or hypertensive BP documented, pt will f/u with PCP Measure #128: Body Mass Index (BMI) Screening & Follow-up: BMI documented ABOVE normal parameters - f/u documented Measure #131: Pain Assessment & Follow-up: Pain positive & plan documented Measure #431: Unhealthy Alcohol Use Preventative Care & Scrn: Patient not identified as an unhealthy alcohol user PQRS Narrative: Smoking Status Current every day smoker Hx Alcohol Use (MH) No Home Medications: Ambulatory Orders QUEtiapine [SEROquel] 200 mg PO HS 01/16/15 ALPRAZolam [Xanax] 0.5 mg PO DAILY PRN 02/27/19 Levothyroxine Sodium [Synthroid] 50 mcg PO DAILY 02/27/19 Lisinopril-Hctz 20-25 mg [Zestoretic 20-25] 1 tab PO HS 02/27/19 traMADol HCL [Ultram] 50 mg PO TID 02/27/19 Ascorbic Acid [Vitamin C] 1,000 mg PO BID 04/20/21 Aspirin [Adult Low Dose Aspirin EC] 81 mg PO DAILY PRN 04/20/21 Biotin 20,000 mcg PO BID 04/20/21 Celecoxib [CeleBREX] 200 mg PO BID 04/20/21 Krill Oil 500 mg PO HS 04/20/21 Multivitamin [Multivitamins Adult Gummies] 1 each PO HS 04/20/21 methocarbamoL [Robaxin-750] 750 mg PO TID 04/20/21 Albuterol Inhaler [Ventolin Hfa Inhaler] 1 - 2 puff INHALATION Q6H PRN 11/29/23 Albuterol Nebulized [Ventolin Nebulized] 2.5 mg INHALATION Q6H PRN 11/29/23 Controlled Substance Measures - Controlled Substance Measures Is patient prescribed a controlled substance at discharge?: No
[2024-02-28 13:07] VITALS: BP 151/68; PULSE 71; RESP 16
== END ==
LOC: PNWHC3 12:07
DX: M47.26 Other spondylosis with radiculopathy, lumbar region (principal); G89.29 Other chronic pain; M79.18 Myalgia, other site; M54.50 Low back pain, unspecified; M79.605 Pain in left leg; M79.604 Pain in right leg; F17.200 Nicotine dependence, unspecified, uncomplicated; Z71.82 Exercise counseling; Z88.8 Allergy status to other drugs, medicaments and biological substances; Z88.2 Allergy status to sulfonamides
CPT/HCPCS: 99211

== ENCOUNTER 2024-04-10 07:40 | Day surgery (SDC) | payer BC ==
[2024-04-10] MEDS ORDERED: LACTATED RINGERS 1,000 ML IV SCH (07:59)
[2024-04-10 08:24] VITALS: TEMP 98.7
[2024-04-10] MEDS ORDERED: IOPAMIDOL M200 10 ML VIAL ONE (08:56)
[2024-04-10] MEDS ORDERED: methylPREDNISolone ACETATE 80 MG/ML 1 ML VIAL ONE (08:56)
--- NOTE | 2024-04-10 09:04 | P.PCN ---
Date of Procedure: 04/10/24 Procedure(s) Performed: PREOPERATIVE DIAGNOSIS: 1- Lumbar Degenerative Disc Diseases 2-Lumbar spondylosis with Facet arthropathy without myelopathy. POSTOPERATIVE DIAGNOSIS: 1-lumbar degenerative disc disease. 2-lumbar spondylosis with facet arthropathy without myelopathy. PROCEDURE 1. Lumbar epidural steroid injection under fluoroscopic guidance at the L5-S1 level. (Fluoroscopy imaging was available in radiology department) 2. Lumbar epidurogram. ANESTHESIA: Lidocaine 1% 3 and then only. EBL: Minimal PROCEDURE INDICATION: The patient with low back pain and radiculitis symptoms unresponsive to conservative treatment. Fluoroscopy was used to optimize visualization of the needle placement and to maximize safety. PROCEDURE DESCRIPTION / TECHNIQUE: The patient was seen and identified in the preoperative area. Risks, benefits, complications including but not limited to infections ,bleeding ,allergic reaction to the medications ,nerve damage and not complete pain releife , and alternatives were discussed with the patient. The patient agreed to proceed with the procedure and signed the consent, and vital signs were stable. Patient was taken to the OR and time out was completed. The patient was placed in the prone position on procedure table and a pillow was placed under the a bdomen to reduce lumbar lordosis. The lumbosacral area was prepped and draped in the usual sterile fashion.ere closely monitored during the procedure. Vital signs was monitered during the entire procedure. Using anterior-posterior fluoroscopy, the L5-S1 interlaminar space was identified and the skin over this site was marked and then infiltrated with 1% lidocaine subcutaneously. Subsequently, a 20-gauge Tuohy epidural needle was inserted and advanced toward the epidural space using the ``Loss of resistance technique and guided by AP and lateral fluoroscopy. The correct needle position in the epidural space was verified with the injection of 2 mL of the water soluble contrast dye Isovue 200 contrast and observing an excellent epidurogram with the epidural spread of the dye, after negative aspiration for blood and CSF and in the absence of paresthesias. Again after negative aspiration, a 6 ml mixture containing 80 mg of Depo-medrol ( Preservetive Free ), and 2 ml of preservative free Normal Saline, and 2 ml of preservative free lidocaine 1% solution was injected and a washout of epidurogram was seen. Needle was withdrawn intact, skin was cleansed, and bandages were applied. COMPLICATIONS: None DISPOSITION / PLANS: The patient was placed in a supine position and transferred to the recovery area in a stable condition for observation. There was no evidence of lower extremity motor or sensory deficit after the procedure. Patient was discharged from the recovery room after meeting discharge criteria. Home discharge instructions were given to the patient by the staff. The patient was reexamined prior to discharge. The patient will schedule a follow up in the clinic in 2-4 weeks.
[2024-04-10 09:31] VITALS: BP 132/66; PULSE 88; RESP 18
--- NOTE | 2024-04-10 09:34 | FL ---
EXAMINATION TYPE: FL guided pain mgmt statistic DATE OF EXAM: 04/10/2024 HISTORY: Fluoroscopy time Total dose area product (DAP) in uGy*m?, mGy*cm? (or similar): 0.19513 IMPRESSION: 1. Fluoroscopy time.
== END 2024-04-10 09:34 | disposition home or self-care (01) ==
LOC: ORPAIN 07:40
PROVIDERS: ATTEND Specialist
DX: M47.26 Other spondylosis with radiculopathy, lumbar region (principal); M51.16 Intervertebral disc disorders with radiculopathy, lumbar region; Z88.8 Allergy status to other drugs, medicaments and biological substances
CPT/HCPCS: 62323; Q9966; J1010

== ENCOUNTER → 2024-04-24 | Outpatient (CLI) | payer BC ==
[2024-04-24 13:22] VITALS: BP 130/66; PULSE 75; RESP 16
--- NOTE | 2024-04-24 14:54 | P.PAINPG ---
PQRS Measure Charge Sheet Comment: A 58 yr old female with a history of severe and chronic LBP since 2014 secondary to lumbar DDD and spondylosis with facet arthropathy without myelopathy presents today for evaluation s/p PERCY L5-S1 #3. Pt states she experienced 70 % pain relief x 2 wk s/p procedure. Pain level is currently at 8 /10 in intensity, constant, localized in the lower lumbar spine, predominantly axial, dull in character w occasional shooting towards the BLEs. 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 Pain is alleviated with 2 stents of PT (March 2023 weekly, then restarted Jul-Aug 2023 x 8 wks for a total of 12 wks), physician guided home exercises 5 times weekly since Aug 2023, medications, topicals, reclining and rest. Oswestry axial pain score of 28. Interventional pain procedures completed include L SI x1 (2015), R SI x2 (2021), PERCY L5-S1 x3 Patient is currently on Tramadol 50mg #60, Neurontin, Robaxin 750mg #90, Celebrex Patient denies any side effects of the medication(s), denies excessive drowsiness or sleepiness, denies suicidal ideation and reports that the current pain medication is helping to control the pain and improve activities of daily living. Patient denies any motor or sensory deficits. Patient denies any fever or night sweats, denies any change in the bowel movements or urination. Physical Examination: -Constitutional: Cooperative. Not in acute distress . - Neurologic: Cranial nerve II to XII intact. No focal neurological deficits. - Psychatric: Alert & oriented x 3. Matching mood & appropriate affect. Judgment and insight intact. - Musculoskeletal: Cervical spine: Muscle bulk/ tone/ strength in the bilateral upper extremities normal Vertebral body tenderness to palpation over Spurling test positive Distraction test positive Facet loading test positive Thoracic spine Muscle bulk / tone/ strength in the bilateral paraspinal muscles normal Vertebral body tender to palpation over Facet loading test positive Lumbar spine: Motor bulk/ tone/ strength lower extremities , thigh and legs : 5/5 Deep tendon reflexes : Normal Knee Jerk. Normal Ankle Jerk . Vertebral body tenderness to palpation Lumbar Facet Loading Test BL L4-L5, L5-S1 Straight Leg Raise: positive at 30 degrees right side/ left side Gaenslen's Test positive Sacral spine : Severe tenderness over the Sacroiliac joint: right side / left side Range of motion: Flexion of the lumbar spine <60 degrees Range of motion: Extension of the lumbar spine <20 degrees Gaenslen's Test positive BL Glendy test: positive right side > left side Thigh Thrust Test R BL Sacral Thrust Test Imaging: Lumbar x rays from 08/10/22 reviewed MRI noncontrast of the lumbar spine from 08/11/23 reviewed Assessment and plan: Chronic LBP secondary to lumbar DDD, spondylosis with facet arthropathy without myelopathy Recommendation of BL MBB L3-L5 #1. May need a series of injections, up until RFA, for optimal pain relief. Risks, benefits of procedure discussed and pt verbalized understanding. Protocol for discontinuation/ continuation of medications hiro procedure discussed. Minimal anesthesia including Fentanyl and Versed if clinically indicated. All patient questions answered MAPS reviewed and it was appropriate. I have spent less than 30 minutes on patient care today. Dr Suarez was available by phone for the evaluation of this patient. The time was used to review the medical records including relevant urine studies and Prescription history (MAPs), review of the available imaging, evaluation and examination of the patient, coordination of care with the medical staff and if applicable referring physicians, as well as creation of the medical record PQRS Narrative: Smoking Status Current every day smoker Hx Alcohol Use (MH) No Home Medications: Ambulatory Orders QUEtiapine [SEROquel] 200 mg PO HS 01/16/15 ALPRAZolam [Xanax] 0.5 mg PO DAILY PRN 02/27/19 Levothyroxine Sodium [Synthroid] 50 mcg PO DAILY 02/27/19 Lisinopril-Hctz 20-25 mg [Zestoretic 20-25] 1 tab PO HS 02/27/19 traMADol HCL [Ultram] 50 mg PO TID 02/27/19 Ascorbic Acid [Vitamin C] 1,000 mg PO BID 04/20/21 Aspirin [Adult Low Dose Aspirin EC] 81 mg PO DAILY PRN 04/20/21 Biotin 20,000 mcg PO BID 04/20/21 Celecoxib [CeleBREX] 200 mg PO BID 04/20/21 Krill Oil 500 mg PO HS 04/20/21 Multivitamin [Multivitamins Adult Gummies] 1 each PO HS 04/20/21 methocarbamoL [Robaxin-750] 750 mg PO TID 04/20/21 Albuterol Inhaler [Ventolin Hfa Inhaler] 1 - 2 puff INHALATION Q6H PRN 11/29/23 Albuterol Nebulized [Ventolin Nebulized] 2.5 mg INHALATION Q6H PRN 11/29/23 Controlled Substance Measures - Controlled Substance Measures Is patient prescribed a controlled substance at discharge?: No
== END ==
LOC: PNWHC3 13:04
PROVIDERS: ATTEND Specialist
DX: M51.37 Other intervertebral disc degeneration, lumbosacral region (principal); M47.817 Spondylosis without myelopathy or radiculopathy, lumbosacral region; F17.200 Nicotine dependence, unspecified, uncomplicated; Z88.8 Allergy status to other drugs, medicaments and biological substances; Z88.2 Allergy status to sulfonamides
CPT/HCPCS: 99211

== ENCOUNTER → 2024-11-03 | Outpatient (CLI) | payer BC ==
--- NOTE | 2024-11-04 08:19 | MM ---
Reason for Exam: Screening (asymptomatic). Last mammogram was performed 3 year(s) and 9 month(s) ago. Patient History: Menarche at age 14. Patient has no children. Maternal cousin had breast cancer, age 50. Maternal aunt had breast cancer. Risk Values: Donna 5 year model risk: 1.4%. NCI Lifetime model risk: 7.6%. Prior Study Comparison: 11/03/2008 Left Diagnostic Mammogram, [facility]. 02/21/2013 Bilateral Screening Mammogram, [facility]. 02/11/2021 Bilateral Screening Mammogram, [facility]. Tissue Density: The breasts are heterogeneously dense, which may obscure small masses. Findings: Analyzed By CAD. Right breast: There is no suspicious group of microcalcifications or new suspicious mass. Left breast: There is no suspicious group of microcalcifications or new suspicious mass. Overall Assessment: Negative, BI-RAD 1 Management: Screening Mammogram of both breasts in [address] [facility] will attempt to contact patient to return for supplemental views and ultrasound if indicated. Patient should continue monthly self-breast exams. A clinical breast exam by your physician is recommended on an annual basis. This exam should not preclude additional follow-up of suspicious palpable abnormalities. Note on Donna scores and lifetime risk: 1. A Donna score greater than 3% is considered moderate risk. If this is the case, consider specialist referral to assess eligibility for a risk reducing agent. 2. If overall lifetime risk for the development of breast cancer is 20% or higher, the patient may qualify for future screening with alternating mammogram and breast MRI. [facility], , 11/04/2024 8:16 AM. Electronically signed and approved by: Sincere Banda DO
== END | disposition home or self-care (01) ==
LOC: RADMAMWWP 16:02
PROVIDERS: ATTEND Family Medicine
DX: Z12.31 Encounter for screening mammogram for malignant neoplasm of breast (principal); Z80.3 Family history of malignant neoplasm of breast; R92.333 Mammographic heterogeneous density, bilateral breasts
CPT/HCPCS: 77063; 77067